=== PATIENT | male | born 1995 | race African-American/Black ===

== ENCOUNTER 2017-06-12 18:19 | Emergency (ER) | payer BC ==
[2017-06-12] MEDS ORDERED: IBUPROFEN 800 MG TABLET PO ONE (19:28)
--- NOTE | 2017-06-12 20:15 | ER Document Report ---
ED Extremity Problem, Lower - General Chief Complaint: Ankle Injury Stated Complaint: LEFT ANKLE PAIN, SWELLING Time Seen by Provider: 06/12/17 19:22 Mode of Arrival: Ambulatory Information source: Patient Notes: 21-year-old male presents to ED for complaint of left ankle pain. States he was at a club last night and was up dancing and someone fell on him causing him to fall landing on his ankle. He states he was intoxicated at the time and the pain was not bad. He woke up this morning with the pain much worse. He used ice for the pain but has not taken any medication. TRAVEL OUTSIDE OF THE [place] IN LAST 30 DAYS: No - HPI Patient complains to provider of: Injury, Pain, Swelling Location: Ankle Occurred: Yesterday - Left Where: Public place Onset/Duration: Gradual Quality of pain: Achy, Throbbing Severity: Severe Pain Level: 5 Context: Fell, Wearing shoes Recent injury: Yes Associated symptoms: Painful ambulation Exacerbated by: Hanging down, Movement, Walking Relieved by: Elevation, Ice - Related Data Allergies/Adverse Reactions: No Known Allergies Allergy (Verified 06/12/17 18:22) Past Medical History - General Information source: Patient - Social History Smoking Status: Never Smoker Cigarette use (# per day): No Chew tobacco use (# tins/day): No Smoking Education Provided: No Frequency of alcohol use: Occasional Drug Abuse: None Occupation: [employer] Lives with: Alone Family History: Arthritis, Hypertension. 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 Renal/ Medical History: Reports: None Malignancy Medical History: Reports None GI Medical History: Reports: None Musculoskeltal Medical History: Reports Other - Myasthenia gravis Skin Medical History: Reports None Psychiatric Medical History: Reports: None Traumatic Medical History: Reports: None Infectious Medical History: Reports: None Past Surgical History: Reports: Hx Inguinal Hernia, Other - Thymus gland removed - Immunizations Immunizations up to date: Yes Hx Diphtheria, Pertussis, Tetanus Vaccination: Yes Review of Systems - Review of Systems Constitutional: No symptoms reported EENT: No symptoms reported Cardiovascular: No symptoms reported Respiratory: No symptoms reported Gastrointestinal: No symptoms reported Genitourinary: No symptoms reported Male Genitourinary: No symptoms reported Musculoskeletal: Ankle swelling Skin: Other - Ecchymosis to left ankle Hematologic/Lymphatic: No symptoms reported Neurological/Psychological: No symptoms reported -: Yes All other systems reviewed and negative Physical Exam - Vital signs Vitals: Temp Pulse Resp BP Pulse Ox 99.0 F 98 18 109/71 100 06/12/17 18:36 06/12/17 18:36 06/12/17 18:36 06/12/17 18:36 06/12/17 18:36 Interpretation: Normal - General General appearance: Appears well, Alert - HEENT Head: Normocephalic, Atraumatic Eyes: Normal Pupils: PERRL - Respiratory Respiratory status: No respiratory distress Chest status: Nontender Breath sounds: Normal Chest palpation: Normal - Cardiovascular Rhythm: Regular Heart sounds: Normal auscultation Murmur: No - Abdominal Inspection: Normal Distension: No distension Bowel sounds: Normal Tenderness: Nontender Organomegaly: No organomegaly - Back Back: Normal, Nontender - Extremities General upper extremity: Normal inspection, Nontender, Normal color, Normal ROM , Normal temperature General lower extremity: Normal color, Normal temperature. No: Boone's sign Ankle: Tender, Ecchymosis, Edema, Limited ROM. No: Abrasion, Deformity, Instability, Laceration, Positive Duong's test, Unable to bear weight - Neurological Neuro grossly intact: Yes Cognition: Normal Orientation: AAOx4 Adriana Coma Scale Eye Opening: Spontaneous Adriana Coma Scale Verbal: Oriented Adriana Coma Scale Motor: Obeys Commands Hull Coma Scale Total: 15 Speech: Normal Motor strength normal: LUE, RUE, LLE, RLE Sensory: Normal - Psychological Associated symptoms: Normal affect, Normal mood - Skin Skin Temperature: Warm Skin Moisture: Dry Skin Color: Normal Course - Re-evaluation Re-evalutation: 06/13/17 01:58 X-rays discussed with patient and written report given to patient. Patient was treated with a posterior splint and Bozman prescription for his avulsion fracture to the left talus. Patient instructed to keep foot elevated and iced and to follow-up with orthopedics in the morning by telephone to schedule follow -up appointment. - Vital Signs Vital signs: Temp Pulse Resp BP Pulse Ox 99.0 F 98 18 109/71 100 06/12/17 18:36 06/12/17 18:36 06/12/17 18:36 06/12/17 18:36 06/12/17 18:36 - Diagnostic Test Radiology reviewed: Image reviewed, Reports reviewed Procedures - Immobilization Left Ankle Time completed: 21:10 Pre-Proc Neuro Vasc Exam: Normal Immobilizer type: Crutches, Posterior ankle Performed by: PCT Post-Proc Neuro Vasc Exam: Normal Alignment checked and good: Yes Discharge - Discharge Clinical Impression: avulsion fracture talus dorsal Condition: Stable Disposition: HOME, SELF-CARE Instructions: Family Physicians / Practices Additional Instructions: Avulsion Fracture of the Ankle There is a small chip fracture in your ankle. This fracture was caused by stretching the joint ligaments, which pulled off a small piece of bone. This injury is treated much the same as a severe sprain. At first, you should elevate, rest, and apply ice packs to the leg. Often , only an ankle brace or tape is necessary while the chip fracture heals. Sometimes a chip fracture of this type requires a cast or walking boot. The treatment plan may change, depending on how your ankle progresses. Chip fractures usually do not fuse back onto the bone, but rather scar down to the bone surface. You will most likely see this bone fragment on future x-rays. It's important that you follow the treatment program as outlined for now, then follow up for re-evaluation as scheduled. Call the doctor or return at once if pain or swelling becomes severe, or if you develop other unusual symptoms. SPLINT PRECAUTIONS: A splint has been placed. This will protect the area while healing begins. Your problem does NOT normally require a cast. It MUST, however, be held still! Keep the splint on ALL THE TIME until instructed to remove it by the doctor. As you begin to use the area, be careful. You shouldn't do anything which causes discomfort -- you may disturb the injury even with the splint in place. After the initial period of rest and elevation, if splint does not prevent pain when you move, come back. You may require placement of a different splint , or a cast. If there is unexpected severe pain, or numbness, discoloration, or swelling beyond the splint, you should return at once. If you feel that the splint has broken or become loose, come back. SPRAINED ANKLE: Your sprained ankle results from stretching or tearing of the ligaments which support the ankle. This usually results from twisting the foot inward and under. The ligaments will require time and protection in order to heal properly. Many ankle sprains are quite disabling, and should be taken seriously. The usual treatment for an ankle sprain is cold packs; protection with tape , splints, or wraps; elevation; and staying off the ankle for at least a day. As the ankle improves, you can walk IF it's not painful to bear weight. Sports are best postponed until healing is complete. More serious sprains usually require strengthening exercises after early healing. Your physician has assessed the seriousness of the ligament injury to your ankle. However, the treatment may change, depending on how your ankle progresses. If further exams were recommended, it is important that you follow through. Call the doctor if your foot becomes numb, painful, or severely swollen. ANKLE STIRRUP SPLINT: You are to use an ankle brace called a stirrup splint. This type of brace allows you to place greater stresses on the ankle without risk of re-injury, and is often used for more severe ankle injuries such as avulsion fractures and ligament ruptures. The splint can be worn over a sock or tape. For proper support, wear the splint with a shoe over it. It's important that the splint fit properly. Adjust the heel tension, if needed. If your splint has air bladders, peel back the bottom of each air bladder, then move the Velcro attachment of the heel strap up or down. Air bladder pressure can be adjusted by pulling up the valve at the top, threading the air tube down into the main bladder, then blowing air into the bladder or squeezing it out. The two sides of the stirrup can be moved forward or back on your ankle by changing the attachment of the main straps. If you are unable to use the ankle comfortably in the splint, return for re -evaluation. SOFT ANKLE SPLINT: You are to wear a cloth ankle splint. This type of splint uses the strength of the fabric to keep the ankle from twisting. The splint can be worn over a sock, if it's more comfortable. If the splint has an adjustable strap, the strap should come up over the OUTER side of the ankle. This strap should be pulled tight enough so you can't turn your ankle in towards you -- it should hold your foot so the sole can't be turned towards at the other foot. You should start out slow. Like a new shoe, the splint may take some "breaking in." You will get blisters if you are too active at first. No ankle brace provides absolute protection. You must avoid activities which put your ankle at risk. Work on strengthening your ankle -- strength is your best protection against re-injury. Call the doctor if you can't do your normal activities in the ankle brace. SPRAINED KNEE: Your sprained knee results from a stretching or tearing of the ligaments which support the joint. This often results from a bending stress -- such as a twisting fall while skiing or a "clip" while playing football. The ligaments will require time and protection to heal adequately. A knee sprain can be quite serious, and should be taken seriously. The usual treatment is splinting of the knee, ice packs, and elevation. You shouldn't walk on the leg if weightbearing is painful. Unless the sprain is obviously a minor one, follow-up exam is very important. The degree of ligament damage often cannot be fully assessed at first due to muscle spasm and pain. Your treatment plan may change based on the physician's findings during your follow-up examination. Call the doctor at once if there is severe swelling, increasing pain, numbness, or other alarming symptoms. SUSPECTED INTERNAL KNEE INJURY: The examiner of your injured knee suspects an internal injury to the cartilage or internal ligaments. This must be further investigated by an orthopedics teacher. The knee should be protected, ice packed, and elevated while awaiting your follow-up exam by the orthopedist. If there is severe swelling, severe pain, or any new symptoms while awaiting your exam, you should call the orthopedist. (If he/she is unavailable, call us or return for re-examination.) KNEE IMMOBILIZING SPLINT: The knee immobilizing splint will protect the injury while healing begins. This type of splint does not allow the knee to bend at all. No running or sports will be possible. If the splint allows painfree walking, it's giving adequate protection. If there is still significant pain, crutches may be needed as well. Don't do anything that hurts. Adjusted the splint, if necessary. The stiffeners on the sides are attached with Velcro, so they can be easily moved to adjust for thigh and calf size. If you need help with these adjustments, come back. You will lose muscle strength in the thigh while using this splint. The doctor will advise you if it's safe to do isometric knee exercises while you use it. USE OF CRUTCHES: The doctor has recommended that you not bear weight at this time. You will need to use crutches. Adjust the crutches so the tops come to about two inches under the armpit while you are standing upright. Use your hands -- not your armpits -- to support your weight. To get into a chair, support yourself with one crutch on the injured side. Hold the chair with the other hand, then lower yourself while putting all your weight on the good leg. Going up stairs is `good leg up, step up, then bring up crutches and bad leg.' Down stairs is `bad leg and crutches down, then bring good leg down.' If you develop numbness or swelling in an arm or hand, you are using the crutches incorrectly. Return if you are having any problems with the crutches. ICE & ELEVATION: Apply ice packs frequently against the painful area. Many different schedules are recommended, such as "20 minutes on, 20 minutes off" or "one hour ice, two hours rest." If you need to work, you may need to go longer between ice treatments. You should plan to have the area ice packed AT LEAST one- fourth of the time. The ice should be applied over the wrap, tape, or splint, or over a layer of cloth -- not directly against the skin. Some ice bags have a built-in cloth and can be put directly on the skin. Your injured part should be elevated as much as possible over the next 48 hours. Try to keep the injury above the level of the heart. Avoid use of the injured area. Elevation and rest will decrease the swelling. USE OF [id number] IBUPROFEN: Ibuprofen (Advil, Nuprin, Medipren, Motrin IB) is a medication for fever and pain control. In addition, it has anti- inflammatory effects which may be beneficial, especially in the treatment of injuries. It's best to take ibuprofen with food. Persons with ulcer disease or allergy to aspirin should notify their physician of this before taking ibuprofen. Ibuprofen can be given every four to six hours, for a total of four doses daily. Age Pain or fever dose Antiinflammatory dose 6-8 yr 200 mg (1 tab) 200 mg (1 tab) 9-11 yr 200 mg (1 tab) 200-400 mg (1-2 tab) 11-14 yr 200-400 mg (1-2 tab) 400 mg (2 tab) 15-adult 400 mg (2 tab) 600 mg (3 tab) ORAL NARCOTIC MEDICATION: You have been given a prescription for pain control. This medication is a narcotic. It's best taken with food, as nausea can result if taken on an empty stomach. Don't operate machinery or drive within six hours of taking this medication. Do not combine this medicine with alcohol, or with any medication which can cause sedation (such as cold tablets or sleeping pills) unless you get permission from the physician. Narcotics tend to cause constipation. If possible, drink plenty of fluids and eat a diet high in fiber and fruits. Please be aware that prescription narcotics also have the potential for abuse. People become addicted to these medications because of the general sense of wellbeing that they induce. This feeling along with a significant reduction in tension, anxiety, and aggression provides a stimulating seductive quality to these drugs. Once your pain is under control, we encourage you to discard your unused narcotics. FOLLOW-UP CARE: If you have been referred to a physician for follow-up care, call the physician s office for an appointment as you were instructed or within the next two days. If you experience worsening or a significant change in your symptoms, notify the physician immediately or return to the Emergency Department at any time for re-evaluation. Prescriptions: Hydrocodone/Acetaminophen [Bozman 5-325 mg Tablet] 1 tab PO Q6HP PRN #7 tablet PRN Reason: Forms: Return to Work Referrals: TERRI KRISHNAN [Primary Care Provider] - Follow up as needed ANDREW DUMONT MD [ACTIVE STAFF] - Follow up as needed
--- NOTE | 2017-06-12 20:28 | RADIOLOGY REPORT (SQ) ---
EXAM DESCRIPTION: ANKLE LEFT COMPLETE COMPLETED DATE/TIME: 06/12/2017 7:43 pm REASON FOR STUDY: pain injury swelling COMPARISON: None. NUMBER OF VIEWS: Three views left ankle. LIMITATIONS: None. FINDINGS: Small ossific fragment just dorsal to the head of the talus seen on lateral view. Suspici ous for a small avulsion fragment. Regional soft tissue swelling. Mortise maintained. No other fra cture identified. No joint effusion. OTHER: No other significant finding. IMPRESSION: Tiny avulsion fragment along the dorsal talus suggested. TECHNICAL DOCUMENTATION: JOB ID: [id number] Reading location - IP/workstation name: [email or web address]
[2017-06-12 21:32] VITALS: BP 140/88
== END 2017-06-12 21:28 | disposition home or self-care (01) ==
LOC: ER 18:19
PROC: 2W3RX1Z Immobilization of Left Lower Leg using Splint (ICD-10-PCS; principal; 2017-06-12)
DX: S92.102A Unspecified fracture of left talus, initial encounter for closed fracture (principal); W03.XXXA Other fall on same level due to collision with another person, initial encounter; Y93.41 Activity, dancing; Y92.89 Other specified places as the place of occurrence of the external cause
CPT/HCPCS: 99283

== ENCOUNTER 2018-01-06 10:27 | Observation (INO) | payer MEDICAID, OTHER ==
--- NOTE | 2018-01-06 10:50 | ER Document Report ---
ED Medical Screen (RME) - General Chief Complaint: Abdominal Pain Stated Complaint: ABDOMINAL PAIN Time Seen by Provider: 01/06/18 10:45 Notes: 22-year-old male patient generalized abdominal pain. States he started hurting about 6 PM last night, got much worse about 1 AM. Pain is predominantly mid to lower abdomen. There is mild nausea without vomiting. He did have 2 episodes of diarrhea with the last one occurring about 4 AM. He reports feeling gassy and is burping and flatulence eating a lot. He states drinking water helps briefly, getting up to walk around seems to help some. I have greeted and performed a rapid initial assessment of this patient. A comprehensive ED assessment and evaluation of the patient, analysis of test results and completion of the medical decision making process will be conducted by additional ED providers. TRAVEL OUTSIDE OF THE [place] IN LAST 30 DAYS: No - Related Data Allergies/Adverse Reactions: No Known Allergies Allergy (Verified 01/06/18 10:32) Past Medical History - Social History Chew tobacco use (# tins/day): No Frequency of alcohol use: Occasional Drug Abuse: None Renal/ Medical History: Denies: Hx Peritoneal Dialysis Past Surgical History: Reports: Hx Inguinal Hernia, Other - Thymus gland removed - Immunizations Immunizations up to date: Yes Hx Diphtheria, Pertussis, Tetanus Vaccination: Yes Physical Exam - Vital signs Vitals: Temp Pulse Resp BP Pulse Ox 98.3 F 67 16 148/97 H 100 01/06/18 10:33 01/06/18 10:33 01/06/18 10:33 01/06/18 10:33 01/06/18 10:33 Course - Vital Signs Vital signs: Temp Pulse Resp BP Pulse Ox 98.3 F 67 16 148/97 H 100 01/06/18 10:33 01/06/18 10:33 01/06/18 10:33 01/06/18 10:33 01/06/18 10:33 Doctor's Discharge - Discharge Referrals: LOCAL,NO [Primary Care Provider] - Follow up as needed
[2018-01-06] MEDS ORDERED: FAMOTIDINE INJ/PF 20 MG/2 ML SDV IV ONE (11:03)
[2018-01-06] MEDS ORDERED: ONDANSETRON HCL INJ/PF 4 MG/2 ML SDV IV ONE (11:03)
[2018-01-06] MEDS ORDERED: DICYCLOMINE HCL 20 MG TABLET PO ONE (11:04)
[2018-01-06] MEDS ORDERED: NORMAL SALINE 1000 ML 1,000 ML IV ONE (11:04)
--- NOTE | 2018-01-06 11:08 | ER Document Report ---
ED General - General Chief Complaint: Abdominal Pain Stated Complaint: ABDOMINAL PAIN Time Seen by Provider: 01/06/18 10:45 TRAVEL OUTSIDE OF THE [place] IN LAST 30 DAYS: No - HPI Notes: Patient is a 22-year-old male that presents to the emergency department for chief complaint of abdominal pain nausea and diarrhea. Patient reports sharp lower abdominal pain that began yesterday evening and has continued to get worse. It is bilateral lower quadrants. He states the pain is worse with laying flat and moving. He denies any relieving factors to his pain. He states he has nausea with no vomiting. He endorses to episodes of diarrhea since onset of the pain. The diarrhea did not change his pain symptoms. He has not tried any [id number] medications. He denies history of similar pain in the past. Past Medical History: Negative Past Surgical History: Umbilical hernia, thymectomy Social History: Denies tobacco and drug use. Occasional alcohol. Family History: Reviewed and noncontributory for presenting illness Allergies: Reviewed, see documented allergy list. REVIEW OF SYSTEMS: CONSTITUTIONAL : No fever No chills No diaphoresis No recent illness EENT: No vision changes No congestion No sore throat CARDIOVASCULAR: No chest pain No palpitations RESPIRATORY: No shortness of breath No cough No difficulty breathing GASTROINTESTINAL: abdominal pain nausea No vomiting diarrhea GENITOURINARY: No dysuria No hematuria No difficulty urinating MUSCULOSKELETAL: No back pain No leg pain No arm pain SKIN: No rashes No lesions LYMPHATIC: No swollen, enlarged glands. NEUROLOGICAL: No lightheadedness No headache No weakness No paresthesias PSYCHIATRIC: No anxiety No depression PHYSICAL EXAMINATION: Vital signs reviewed, nursing noted reviewed. GENERAL: Well-appearing, well-nourished and in no acute distress. HEAD: Atraumatic, normocephalic. EYES: Eyes appear normal, extraocular movements intact, sclera anicteric, conjunctiva are normal. ENT: nares patent, oropharynx clear without exudates. Moist mucous membranes. NECK: Normal range of motion, supple without lymphadenopathy LUNGS: Breath sounds clear to auscultation bilaterally and equal. No wheezes rales or rhonchi. HEART: Regular rate and rhythm without murmurs ABDOMEN: Soft, mild bilateral right and left lower quadrant tenderness, normoactive bowel sounds. No rebound, guarding, or rigidity. No masses appreciated. Negative psoas sign. No peritoneal pain with heel strike EXTREMITIES: Nontender, good range of motion, no pitting or edema. NEUROLOGICAL: No focal neurological deficits. Moves all extremities spontaneously Motor and sensory grossly intact on exam. PSYCH: Normal mood, normal affect. SKIN: Warm, Dry, normal turgor, no rashes or lesions noted on exposed skin - Related Data Allergies/Adverse Reactions: No Known Allergies Allergy (Verified 01/06/18 10:32) Past Medical History - Social History Smoking Status: Unknown if Ever Smoked Chew tobacco use (# tins/day): No Frequency of alcohol use: Occasional Drug Abuse: None Family History: Arthritis, Hypertension. denies: CAD, COPD, CVA, DM, Hyperlipidemia, Malignancy, Thyroid Disfunction Patient has suicidal ideation: No Patient has homicidal ideation: No Renal/ Medical History: Denies: Hx Peritoneal Dialysis Past Surgical History: Reports: Hx Inguinal Hernia, Other - Thymus gland removed - Immunizations Immunizations up to date: Yes Hx Diphtheria, Pertussis, Tetanus Vaccination: Yes Review of Systems - Review of Systems Notes: Dictated Physical Exam - Vital signs Vitals: Temp Pulse Resp BP Pulse Ox 98.3 F 67 16 148/97 H 100 01/06/18 10:33 01/06/18 10:33 01/06/18 10:33 01/06/18 10:33 01/06/18 10:33 - Notes Notes: Dictated Course - Re-evaluation Re-evalutation: 01/06/18 11:08 Vitals reviewed. Nursing notes reviewed. Patient given IV hydration, antiemetics and Bentyl for symptomatic treatment. 01/06/18 12:13 On reevaluation patient states he has minimal improvement of his pain. He was given IV morphine. Acute abdominal series showed no obstruction however on CT scan patient has a partial small bowel obstruction. He is still nauseated and NG tube was placed. Lab work is unremarkable. Patient's care was discussed with Dr. Aguirre who accepted admission. Patient in agreement with the plan and stable at time of admission. Laboratory 01/06/18 01/06/18 01/06/18 11:02 11:02 11:02 WBC 6.4 RBC 5.65 H Hgb 17.0 Hct 49.3 MCV 87 MCH 30.1 MCHC 34.5 RDW 13.9 Plt Count 204 Seg Neutrophils % 66.1 Lymphocytes % 27.3 Monocytes % 5.5 Eosinophils % 0.4 Basophils % 0.7 Absolute Neutrophils 4.2 Absolute Lymphocytes 1.7 Absolute Monocytes 0.4 Absolute Eosinophils 0.0 Absolute Basophils 0.0 Sodium 139.3 Potassium 4.5 Chloride 102 Carbon Dioxide 27 Anion Gap 10 BUN 10 Creatinine 0.83 Est GFR ( Amer) > 60 Est GFR (Non-Af Amer) > 60 Glucose 98 Calcium 9.7 Total Bilirubin 1.4 H Direct Bilirubin 0.4 Neonat Total Bilirubin Not Reportable Neonat Direct Bilirubin Not Reportable Neonat Indirect Bili Not Reportable AST 26 ALT 38 Alkaline Phosphatase 39 Total Protein 8.0 Albumin 4.7 Lipase 73.4 Urine Color YELLOW Urine Appearance CLOUDY Urine pH 9.0 Ur Specific [place] 1.023 Urine Protein 30 H Urine Glucose (UA) NEGATIVE Urine Ketones NEGATIVE Urine Blood NEGATIVE Urine Nitrite NEGATIVE Urine Bilirubin NEGATIVE Urine Urobilinogen NEGATIVE Ur Leukocyte Esterase NEGATIVE Urine WBC (Auto) 3 Urine RBC (Auto) 3 Amorphous Sediment Auto 1+ Urine Mucus (Auto) OCC Urine Ascorbic Acid NEGATIVE Acute Abdomen Series 01/06/18 00:00 IMPRESSION: NONSPECIFIC BOWEL GAS PATTERN WITHOUT EVIDENCE FOR OBSTRUCTION. Abdomen/Pelvis CT 01/06/18 11:05 IMPRESSION: Ileus versus partial small bowel obstruction/ internal hernia. No high-grade obstruction. - Vital Signs Vital signs: Temp Pulse Resp BP Pulse Ox 98.3 F 67 16 148/97 H 100 01/06/18 10:33 01/06/18 10:33 01/06/18 10:33 01/06/18 10:33 01/06/18 10:33 - Laboratory Result Diagrams: 01/06/18 11:02 01/06/18 11:02 Laboratory results interpreted by me: 01/06/18 01/06/18 01/06/18 11:02 11:02 11:02 RBC 5.65 H Total Bilirubin 1.4 H Urine Protein 30 H Discharge - Discharge Clinical Impression: Partial small bowel obstruction Abdominal pain Qualifiers: Abdominal location: lower abdomen, unspecified Qualified Code(s): R10.30 - Lower abdominal pain, unspecified Condition: Stable Disposition: ADMITTED INPATIENT Admitting Provider: Surgicalist Unit Admitted: Medical Floor Referrals: LOCALMD,NO [Primary Care Provider] - Follow up as needed
[2018-01-06 11:17] LABS: ABSOLUTE LYMPHOCYTES (AUTO) 1.7 10^3/uL (0.5-4.7); ABSOLUTE MONOCYTES (AUTO) 0.4 10^3/uL (0.1-1.4); ABSOLUTE NEUT (AUTO) 4.2 10^3/uL (1.7-8.2); BASOPHILS % (AUTO) 0.7 % (0-2); EOSINOPHILS % (AUTO) 0.4 % (0-6); HEMATOCRIT 49.3 % (37.9-51.0); LYMPHOCYTES % (AUTO) 27.3 % (13-45); MEAN CORPUSCULAR HEMOGLOBIN 30.1 pg (27.0-33.4); MEAN CORPUSCULAR HGB CONC 34.5 g/dL (32.0-36.0); MEAN CORPUSCULAR VOLUME 87 fl (80-97); MONOCYTES % (AUTO) 5.5 % (3-13); PLATELET COUNT 204 10^3/uL (150-450); RED BLOOD COUNT 5.65 10^6/uL (4.35-5.55); RED CELL DISTRIBUTION WIDTH 13.9 % (11.5-14.0); SEGMENTED NEUTROPHILS % (AUTO) 66.1 % (42-78); TOTAL CELLS COUNTED % (AUTO) 100 %; WHITE BLOOD COUNT 6.4 10^3/uL (4.0-10.5)
--- NOTE | 2018-01-06 11:24 | RADIOLOGY REPORT (SQ) ---
EXAM DESCRIPTION: ACUTE ABDOMEN SERIES COMPLETED DATE/TIME: 01/06/2018 11:16 am REASON FOR STUDY: GENERALIZED ABDOMINAL SERIES COMPARISON: None. NUMBER OF VIEWS: Three views. TECHNIQUE: PA chest, supine abdomen and upright/decubitus abdomen radiographic images acquired. LIMITATIONS: None. FINDINGS: CHEST: Lungs clear of infiltrates. FREE AIR: None. No abnormal gas collections. BOWEL GAS PATTERN: Few scattered small bowel loops with air fluid levels. No distended large or small bowel loops. CALCIFICATIONS: No suspicious calcifications. HARDWARE: None in the abdomen. SOFT TISSUES: No gross mass or suggestion of organomegaly. BONES: No acute fracture. No worrisome bone lesions. OTHER: No other significant finding. IMPRESSION: NONSPECIFIC BOWEL GAS PATTERN WITHOUT EVIDENCE FOR OBSTRUCTION. TECHNICAL DOCUMENTATION: JOB ID: [id number] [employer] All Rights Reserved Reading location - IP/workstation name: [email or web address]
[2018-01-06 11:27] LABS: AMORPHOUS SEDIMENT,URINE 1+ /HPF; APPEARANCE,URINE CLOUDY; BILIRUBIN,URINE NEGATIVE (NEGATIVE); COLOR,URINE YELLOW; GLUCOSE, URINE NEGATIVE (NEGATIVE); KETONES,URINE NEGATIVE (NEGATIVE); LEUKOCYTE ESTERASE,URINE NEGATIVE (NEGATIVE); NITRITE,URINE NEGATIVE (NEGATIVE); PROTEIN,URINE 30 mg/dL (NEGATIVE); URINE SPECIFIC GRAVITY 1.023; UROBILINOGEN,URINE NEGATIVE mg/dL (<2.0)
[2018-01-06 11:28] LABS: ALANINE AMINOTRANSFERASE 38 U/L (21-72); ALBUMIN 4.7 g/dL (3.5-5.0); ALKALINE PHOSPHATASE 39 U/L (38-126); ANION GAP 10 (5-19); ASPARTATE AMINO TRANSFERASE 26 U/L (17-59); BILIRUBIN,DIRECT 0.4 mg/dL (0.0-0.4); BILIRUBIN,TOTAL 1.4 mg/dL (0.2-1.3); BLOOD UREA NITROGEN 10 mg/dL (7-20); CALCIUM 9.7 mg/dL (8.4-10.2); CARBON DIOXIDE 27 mmol/L (22-30); CHLORIDE 102 mmol/L (98-107); GLUCOSE 98 mg/dL (75-110); LIPASE 73.4 U/L (23-300); POTASSIUM 4.5 mmol/L (3.6-5.0); SODIUM 139.3 mmol/L (137-145)
--- NOTE | 2018-01-06 11:59 | RADIOLOGY REPORT (SQ) ---
EXAM DESCRIPTION: CT ABD/PELVIS WITH IV ONLY COMPLETED DATE/TIME: 01/06/2018 11:37 am REASON FOR STUDY: abdominal pain COMPARISON: None. TECHNIQUE: CT scan of the abdomen and pelvis performed using helical scanning technique with dynamic intravenous contrast injection. No oral contrast. Images reviewed with lung, soft tissue, and bone windows. Reconstructed coronal and sagittal MPR images reviewed. Delayed images for evaluation of the urinary system also acquired. All images stored on PACS. All CT scanners at this facility use dose modulation, iterative reconstruction, and/or weight based d osing when appropriate to reduce radiation dose to as low as reasonably achievable (ALARA). [facility]: Dose Right [facility]: CareDose [facility]: Dose Right [facility]: Teradose 4D [facility]: [employer]Energy CONTRAST TYPE AND DOSE: contrast/concentration: Isovue 350.00 mg/ml; Total Contrast Delivered: 100.0 ml; Total Saline Delivered: 72.0 ml RENAL FUNCTION: None required. The patient is less than 50 years old. RADIATION DOSE: CT Rad equipment meets quality standard of care and radiation dose reduction techniq ues were employed. CTDIvol: 11.6 - 16.0 mGy. DLP: 1308 mGy-cm.. LIMITATIONS: None. FINDINGS: LOWER CHEST: No significant findings. No nodules or infiltrates. LIVER: Normal size. No masses. No dilated ducts. SPLEEN: Normal size. No focal lesions. PANCREAS: No masses. No significant calcifications. No adjacent inflammation or peripancreatic fluid collections. Pancreatic duct not dilated. GALLBLADDER: No identified stones by CT criteria. No inflammatory changes to suggest cholecystitis. ADRENAL GLANDS: No significant masses or asymmetry. RIGHT KIDNEY AND URETER: No solid masses. No significant calcifications. No hydronephrosis or hyd roureter. LEFT KIDNEY AND URETER: No solid masses. No significant calcifications. No hydronephrosis or hydr oureter. AORTA AND VESSELS: No aneurysm. No dissection. Renal arteries, SMA, celiac without stenosis. RETROPERITONEUM: No retroperitoneal adenopathy, hemorrhage or masses. BOWEL AND PERITONEAL CAVITY: Dilated loops of small bowel in the pelvis and left lower quadrant. Pos sible transition at the level of the umbilicus. Gas and fecal material in nondilated colon. No asci ugrpreet or free air. APPENDIX: Normal. PELVIS: No mass. No free fluid. Normal bladder. ABDOMINAL WALL: No masses. No hernias. BONES: No significant or acute findings. OTHER: No other significant finding. IMPRESSION: Ileus versus partial small bowel obstruction/ internal hernia. No high-grade obstructio n. TECHNICAL DOCUMENTATION: JOB ID: [id number] Quality ID # [id number]: Final reports with documentation of one or more dose reduction techniques (e.g., Au tomated exposure control, adjustment of the mA and/or kV according to patient size, use of iterative reconstruction technique) 2010 [employer] / [email or web address]- All Rights Reserved Reading location - IP/workstation name: [facility]
[2018-01-06] MEDS ORDERED: MORPHINE SULFATE 10 MG/ML INJ IV ONE (12:12)
--- NOTE | 2018-01-06 15:19 | PDOC H&P ---
History of Present Illness Admission Date/PCP: 01/06/18 12:41 Patient complains of: abdominal pains History of Present Illness: YVONNE CONNER JR is a 22 year old male who suddenly c/o karla-umbilical pains last night after eating hamburger. This was associated with nausea and diarrhea. Pains are intermittent but does not completely go away. History of umbilical hernia repair at age 10 months. He has not had any abdominal c/o until last night. Past Surgical History Past Surgical History: Reports: Other - Thymus gland removed Umbilical hernia repair as 10 months age Social History Smoking Status: Unknown if Ever Smoked Frequency of Alcohol Use: Occasional Family History Family History: Arthritis, Hypertension. denies: CAD, COPD, CVA, DM, Hyperlipidemia, Malignancy, Thyroid Disfunction Parental Family History Reviewed: Yes - hypertension Children Family History Reviewed: No Sibling(s) Family History Reviewed.: No Medication/Allergy Home Medications: No Home Medications 01/06/18 Allergies/Adverse Reactions: No Known Allergies Allergy (Verified 01/06/18 10:32) Review of Systems Constitutional: PRESENT: as per HPI Eyes: PRESENT: other - no visual/hearing changes Cardiovascular: PRESENT: other - no chest pains/cough Gastrointestinal: PRESENT: abdominal pain, diarrhea, nausea Genitourinary: PRESENT: other - no dysuria Neurological: PRESENT: other - no seizures Physical Exam Vital Signs: Temp Pulse Resp BP Pulse Ox 98.3 F 67 16 148/97 H 100 01/06/18 10:33 01/06/18 10:33 01/06/18 10:33 01/06/18 10:33 01/06/18 10:33 Intake & Output 01/05/18 01/06/18 01/07/18 06:59 06:59 06:59 Intake Total 1000 Output Total 100 Balance 900 General appearance: PRESENT: mild distress Head exam: PRESENT: atraumatic Eye exam: PRESENT: conjunctiva pink Mouth exam: PRESENT: moist Neck exam: PRESENT: full ROM Respiratory exam: PRESENT: clear to auscultation salma Cardiovascular exam: PRESENT: RRR Pulses: PRESENT: normal radial pulses Vascular exam: PRESENT: normal capillary refill GI/Abdominal exam: PRESENT: soft, tenderness - periumbilical area,mild Rectal exam: PRESENT: deferred Extremities exam: PRESENT: full ROM Musculoskeletal exam: PRESENT: ambulatory Neurological exam: PRESENT: alert, oriented to person, oriented to place, oriented to time, oriented to situation Psychiatric exam: PRESENT: appropriate affect Skin exam: PRESENT: normal color, warm Results Impressions: Acute Abdomen Series 01/06/18 00:00 IMPRESSION: NONSPECIFIC BOWEL GAS PATTERN WITHOUT EVIDENCE FOR OBSTRUCTION. Abdomen/Pelvis CT 01/06/18 11:05 IMPRESSION: Ileus versus partial small bowel obstruction/ internal hernia. No high-grade obstruction. Assessment & Plan - Time Time Spent: 30 to 50 Minutes - Inpatient Certification Based on my medical assessment, after consideration of the patient's comorbidities, presenting symptoms, or acuity I expect that the services needed warrant INPATIENT care.: Yes I certify that my determination is in accordance with my understanding of Medicare's requirements for reasonable and necessary INPATIENT services [42 CFR 412.3e].: Yes Medical Necessity: Need For IV Fluids, Need for Pain Control, Need for Surgery, Risk of Complication if Not Cared For in Hospital - Plan Summary Plan Summary: NGT SBFT Hydrate Pain mx
--- NOTE | 2018-01-06 16:19 | RADIOLOGY REPORT (SQ) ---
EXAM DESCRIPTION: KUB/ABDOMEN (SINGLE VIEW) COMPLETED DATE/TIME: 01/06/2018 4:05 pm REASON FOR STUDY: ng tube placement COMPARISON: None. NUMBER OF VIEWS: One view. TECHNIQUE: Supine radiographic image of the abdomen acquired. LIMITATIONS: None. FINDINGS: Nasogastric tube in the stomach. See separate small-bowel follow-through. Contrast in th e left kidney collecting system and urinary bladder. IMPRESSION: Nasogastric tube in the stomach. Reading location - IP/workstation name: [email or web address]
--- NOTE | 2018-01-06 16:21 | RADIOLOGY REPORT (SQ) ---
EXAM DESCRIPTION: SMALL BOWEL SERIES COMPLETED DATE/TIME: 01/06/2018 4:04 pm REASON FOR STUDY: to check possible site of obstruction COMPARISON: None. FLUOROSCOPY TIME: None No fluoro images saved to PACS. LIMITATIONS: None. PROCEDURE: Initial demi chef image of abdomen acquired, followed by administration of oral contrast. Se rial radiographic images acquired. Fluoroscopic images recorded of the terminal ileum and other tiarra cated areas. All images stored on PACS. FINDINGS: EDITOR [employer] KUB: Non-obstructive bowel pattern. No abnormal calcifications. Soft tissue planes normal. STOMACH: No significant reflux. Normal distention without abnormality. DUODENUM: Normal mucosal pattern with adequate distention. No displacement or obstruction. JEJUNUM: Normal mucosal pattern. No dilatation, segmentation, strictures or masses. ILEUM: Normal mucosal pattern. No dilatation, segmentation, strictures or masses. TERMINAL ILEUM AND ILEO-CECAL VALVE: Normal mucosal pattern without "cobblestoning" or stricture. No rmal compression. PROXIMAL COLON: Incompletely imaged. No abnormality. OTHER: Small bowel transit time 1-1/2 hours. IMPRESSION: NORMAL SMALL BOWEL EXAM. COMMENT: None Quality ID 145: Final reports for procedures using fluoroscopy that document radiation exposure tiarra sheryl, or exposure time and number of fluorographic images (if radiation exposure indices are not avail able) TECHNICAL DOCUMENTATION: JOB ID: [id number] [employer]- All Rights Reserved Reading location - IP/workstation name: [email or web address]
[2018-01-06] MEDS ORDERED: NORMAL SALINE 1000 ML 1,000 ML IV PRN ×2 (16:43→17:22)
[2018-01-06] MEDS ORDERED: MORPHINE SULFATE 10 MG/ML INJ IV PRN (16:44)
[2018-01-07 06:45] LABS: ANION GAP 6 (5-19); BLOOD UREA NITROGEN 8 mg/dL (7-20); CALCIUM 8.7 mg/dL (8.4-10.2); CARBON DIOXIDE 28 mmol/L (22-30); CHLORIDE 106 mmol/L (98-107); GLUCOSE 89 mg/dL (75-110); POTASSIUM 4.2 mmol/L (3.6-5.0); SODIUM 139.7 mmol/L (137-145)
[2018-01-07 06:46] LABS: ABSOLUTE EOSINOPHILS # (AUTO) 0.1 10^3/uL (0.0-0.6); ABSOLUTE LYMPHOCYTES (AUTO) 2.6 10^3/uL (0.5-4.7); ABSOLUTE MONOCYTES (AUTO) 0.4 10^3/uL (0.1-1.4); ABSOLUTE NEUT (AUTO) 2.1 10^3/uL (1.7-8.2); BASOPHILS % (AUTO) 0.4 % (0-2); EOSINOPHILS % (AUTO) 1.1 % (0-6); LYMPHOCYTES % (AUTO) 50.1 % (13-45); MEAN CORPUSCULAR HEMOGLOBIN 30.5 pg (27.0-33.4); MEAN CORPUSCULAR HGB CONC 34.2 g/dL (32.0-36.0); MEAN CORPUSCULAR VOLUME 89 fl (80-97); MONOCYTES % (AUTO) 8.4 % (3-13); PLATELET COUNT 169 10^3/uL (150-450); RED BLOOD COUNT 4.83 10^6/uL (4.35-5.55); RED CELL DISTRIBUTION WIDTH 14.1 % (11.5-14.0); TOTAL CELLS COUNTED % (AUTO) 100 %; WHITE BLOOD COUNT 5.2 10^3/uL (4.0-10.5)
[2018-01-07 06:48] LABS: HEMOGLOBIN 14.7 g/dL (13.5-17.0)
--- NOTE | 2018-01-07 07:11 | DISCHARGE SUMMARY E ---
Discharge Summary NAME: YVONNE CONNER : 1995 AGE: 22Y ADMITTED: 01/06/2018 DISCHARGED: 01/07/2018 FINAL DIAGNOSIS: Partial small bowel obstruction. HOSPITAL COURSE: This is a 22-year-old male who had a previous umbilical hernia repair in the past. He complained of umbilical pains on the day of admission. He had a CAT scan of the abdomen, which showed partial small bowel obstruction. He then went further for a small bowel follow through, which showed obstruction appears to have been resolved. The patient had a bowel movement on the night of admission and the pain appears to have subsided. On the morning of discharge on 01/07/2018, patient able to tolerate soft diet and the lower abdominal pain disappeared. He was then discharged improved with the above final diagnosis. The patient advised to follow up with his primary physician. DICTATING PHYSICIAN: DEISY MARINELLI M.D. [id number] PHY#: [id number] ID: [id number] JOB#: [id number] ACCT: [id number] cc:DEISY MARINELLI M.D. >
[2018-01-07 08:25] VITALS: BP 123/67
== END 2018-01-07 09:17 | disposition home or self-care (01) ==
LOC: ER 10:27 → INTOOBSV 12:41 → EH 12:41 → 2N 16:06
PROVIDERS: ADMIT Surgery; ATTEND Surgery
DX: K56.600 Partial intestinal obstruction, unspecified as to cause (principal); Z98.890 Other specified postprocedural states; Z23 Encounter for immunization
CPT/HCPCS: 99285; 96374; 96375; 36415 ×2; 83690; 85025 ×2; 80048; 80053; 81001; 74022; 74018; 74250; 74177; 90686; G0378 ×2; G0008; J3490; J2270; J2405; J7030; S0028; 90471

== ENCOUNTER 2018-03-05 17:02 | Inpatient (IN) | payer MEDICAID ==
[2018-03-05] MEDS ORDERED: THIAMINE HCL 100 MG in NORMAL SALINE 50 ML IV ONE (17:38)
--- NOTE | 2018-03-05 18:00 | ER Document Report ---
ED Medical Screen (RME) - General Chief Complaint: Hip Pain Stated Complaint: HIP PAIN, UNABLE TO SPEAK Time Seen by Provider: 03/05/18 17:36 Notes: Patient is a 22-year-old male with history of myasthenia gravis that presents to the emergency department for chief complaint of left hip pain, and confusion. Mother reports that patient was drinking until the night, the next day he was hung over, but he has been laying in bed, and confused, not answering questions appropriately, this is all new and very concerning for her. ROS: Other than noted above, the 12 point review of systems was reviewed with the patient and were negative, all pertinent findings are included in the HPI. PHYSICAL EXAMINATION: Vital signs reviewed. GENERAL: Well-appearing, well-nourished and in no acute distress. HEAD: Atraumatic, normocephalic. EYES: Pupils equal round extraocular movements intact, conjunctiva are normal. ENT: Nares patent NECK: Normal range of motion CV: Heart regular rate and rhythm LUNGS: No respiratory distress Musculoskeletal: Normal range of motion, left hip tenderness to palpation over the left greater trochanter NEUROLOGICAL: Normal speech, patient is confused, and seems to have a degree of receptive aphasia, not answering questions appropriately, talking about the bathroom when asked what year it is, he can come up with his birthday, or the president. No other focal neurological deficits, muscular motor strength and sensation appear to be grossly intact distally in all extremities. PSYCH: Flat affect MDM: Patient seen and examined for rapid initial assessment. Vital signs reviewed. A comprehensive ED assessment and evaluation of the patient, analysis of test results and completion of the medical decision making process will be conducted by additional ED providers. *Note is created using voice recognition software and may contain spelling, syntax or grammatical errors. TRAVEL OUTSIDE OF THE [place] IN LAST 30 DAYS: No - Related Data Allergies/Adverse Reactions: No Known Allergies Allergy (Verified 01/06/18 10:32) Past Medical History - Social History Chew tobacco use (# tins/day): No Frequency of alcohol use: None Drug Abuse: None Renal/ Medical History: Denies: Hx Peritoneal Dialysis Psychiatric Medical History: Denies: Hx Depression Past Surgical History: Reports: Hx Inguinal Hernia, Other - Thymus gland removed Umbilical hernia repair as 10 months age - Immunizations Immunizations up to date: Yes Hx Diphtheria, Pertussis, Tetanus Vaccination: Yes Physical Exam - Vital signs Vitals: Temp Pulse Resp BP Pulse Ox 100.7 F H 96 16 139/93 H 99 03/05/18 17:20 03/05/18 17:20 03/05/18 17:20 03/05/18 17:20 03/05/18 17:20 Course - Vital Signs Vital signs: Temp Pulse Resp BP Pulse Ox 100.7 F H 96 16 139/93 H 99 03/05/18 17:20 03/05/18 17:20 03/05/18 17:20 03/05/18 17:20 03/05/18 17:20
[2018-03-05 18:14] LABS: ABSOLUTE LYMPHOCYTES (AUTO) 2.2 10^3/uL (0.5-4.7); ABSOLUTE MONOCYTES (AUTO) 0.7 10^3/uL (0.1-1.4); ABSOLUTE NEUT (AUTO) 4.7 10^3/uL (1.7-8.2); BASOPHILS % (AUTO) 0.4 % (0-2); HEMATOCRIT 49.1 % (37.9-51.0); HEMOGLOBIN 17.4 g/dL (13.5-17.0); LYMPHOCYTES % (AUTO) 28.5 % (13-45); MEAN CORPUSCULAR HEMOGLOBIN 30.5 pg (27.0-33.4); MEAN CORPUSCULAR HGB CONC 35.5 g/dL (32.0-36.0); MEAN CORPUSCULAR VOLUME 86 fl (80-97); MONOCYTES % (AUTO) 9.3 % (3-13); PLATELET COUNT 161 10^3/uL (150-450); RED BLOOD COUNT 5.72 10^6/uL (4.35-5.55); RED CELL DISTRIBUTION WIDTH 14.2 % (11.5-14.0); SEGMENTED NEUTROPHILS % (AUTO) 61.8 % (42-78); TOTAL CELLS COUNTED % (AUTO) 100 %; WHITE BLOOD COUNT 7.6 10^3/uL (4.0-10.5)
[2018-03-05 18:22] LABS: APPEARANCE,URINE SLIGHTLY-CLOUDY; BILIRUBIN,URINE NEGATIVE (NEGATIVE); COLOR,URINE AMBER; GLUCOSE, URINE NEGATIVE (NEGATIVE); KETONES,URINE TRACE mg/dL (NEGATIVE); LEUKOCYTE ESTERASE,URINE NEGATIVE (NEGATIVE); NITRITE,URINE NEGATIVE (NEGATIVE); PROTEIN,URINE >=500 mg/dL (NEGATIVE); URINE SPECIFIC GRAVITY 1.026; UROBILINOGEN,URINE NEGATIVE mg/dL (<2.0)
[2018-03-05] MEDS ORDERED: ACETAMINOPHEN 325 MG TABLET PO ONE (18:31)
[2018-03-05] MEDS ORDERED: LIDOCAINE 1% INJ-PF (10 MG/ML) 30 ML SDV INJ ONE (18:31)
[2018-03-05 18:35] LABS: URINE AMPHETAMINES SCREEN NEGATIVE; URINE BARBITURATES SCREEN NEGATIVE; URINE BENZODIAZEPINES SCREEN NEGATIVE; URINE COCAINE SCREEN NEGATIVE; URINE MARIJUANA (THC) SCREEN NEGATIVE; URINE METHADONE SCREEN NEGATIVE; URINE PHENCYCLIDINE SCREEN NEGATIVE
[2018-03-05 18:39] LABS: ALANINE AMINOTRANSFERASE 75 U/L (21-72); ALBUMIN 4.8 g/dL (3.5-5.0); ALKALINE PHOSPHATASE 56 U/L (38-126); ANION GAP 16 (5-19); ASPARTATE AMINO TRANSFERASE 97 U/L (17-59); BILIRUBIN,DIRECT 0.2 mg/dL (0.0-0.4); BILIRUBIN,TOTAL 1.1 mg/dL (0.2-1.3); BLOOD UREA NITROGEN 19 mg/dL (7-20); CALCIUM 9.1 mg/dL (8.4-10.2); CARBON DIOXIDE 26 mmol/L (22-30); CHLORIDE 97 mmol/L (98-107); CREATINE KINASE 1233 U/L (55-170); GLUCOSE 94 mg/dL (75-110); LIPASE 239.7 U/L (23-300); POTASSIUM 3.9 mmol/L (3.6-5.0); SODIUM 139.4 mmol/L (137-145); TOTAL PROTEIN 8.3 g/dL (6.3-8.2)
[2018-03-05 18:42] LABS: ACETAMINOPHEN < 10 ug/mL (10-30); SALICYLATE < 1.0 mg/dL (2.0-20.0)
[2018-03-05 18:46] LABS: ARTERIAL BLOOD H2CO3 1.13 mmol/L (1.05-1.35); ARTERIAL BLOOD HCO3 23.2 mmol/L (20-24); ARTERIAL BLOOD O2 SATURATION 93.1 % (94-98); ARTERIAL BLOOD PCO2 37.5 mmHg (35-45); ARTERIAL BLOOD PH 7.41 (7.35-7.45); ARTERIAL BLOOD PO2 65.2 mmHg (80-100); ARTERIAL BLOOD TOTAL CO2 24.3 mmol/L (23-27)
[2018-03-05 18:47] LABS: ARTERIAL BLOOD FIO2 ROOM AIR
[2018-03-05 18:54] LABS: FREE T4 (FREE THYROXINE) 1.01 ng/dL (0.78-2.19)
[2018-03-05] MEDS ORDERED: RINGERS SOLUTION,LACTATED 2,000 ML IV ONE (18:55)
--- NOTE | 2018-03-05 18:55 | RADIOLOGY REPORT (SQ) ---
EXAM DESCRIPTION: CT HEAD WITHOUT COMPLETED DATE/TIME: 03/05/2018 6:40 pm REASON FOR STUDY: aphasia COMPARISON: 03/15/2011 TECHNIQUE: Axial images acquired through the brain without intravenous contrast. Images reviewed wi th bone, brain and subdural windows. Additional sagittal and coronal reconstructions were generated. Images stored on PACS. All CT scanners at this facility use dose modulation, iterative reconstruction, and/or weight based d osing when appropriate to reduce radiation dose to as low as reasonably achievable (ALARA). [facility]: Dose Right [facility]: CareDose [facility]: Dose Right [facility]: Teradose 4D [facility]: [employer] RADIATION DOSE: CT Rad equipment meets quality standard of care and radiation dose reduction techniq ues were employed. CTDIvol: 53.2 mGy. DLP: 1097 mGy-cm. mGy. LIMITATIONS: None. FINDINGS: VENTRICLES: Normal size and contour. CEREBRUM: No masses. No hemorrhage. No midline shift. No evidence for acute infarction. Normal gra y/white matter differentiation. No areas of low density in the white matter. CEREBELLUM: No masses. No hemorrhage. No alteration of density. No evidence for acute infarction. EXTRAAXIAL SPACES: No fluid collections. No masses. ORBITS AND GLOBE: No intra- or extraconal masses. Normal contour of globe without masses. CALVARIUM: No fracture. PARANASAL SINUSES: No fluid or mucosal thickening. SOFT TISSUES: No mass or hematoma. OTHER: No other significant finding. IMPRESSION: NORMAL BRAIN CT WITHOUT CONTRAST. EVIDENCE OF ACUTE STROKE: NO. COMMENT: Quality ID # 436: Final reports with documentation of one or more dose reduction techniques (e.g., Automated exposure control, adjustment of the mA and/or kV according to patient size, use of iterative reconstruction technique) TECHNICAL DOCUMENTATION: JOB ID: [id number] [employer]- All Rights Reserved Reading location - IP/workstation name: [email or web address]
--- NOTE | 2018-03-05 19:00 | RADIOLOGY REPORT (SQ) ---
EXAM DESCRIPTION: HIP LEFT AP/LATERAL COMPLETED DATE/TIME: 03/05/2018 6:49 pm REASON FOR STUDY: left hip pain COMPARISON: 01/06/2018 NUMBER OF VIEWS: Two views. TECHNIQUE: AP pelvis and additional frog-leg view of the left hip. LIMITATIONS: None. FINDINGS: MINERALIZATION: Normal. LEFT HIP: No fracture or dislocation. No worrisome bone lesions. RIGHT HIP: No fracture or dislocation. No worrisome bone lesions. PUBIS AND ISCHIUM: No fracture. PELVIS: No fracture. SACRUM: No fracture or dislocation. No worrisome bone lesions. LOWER LUMBAR SPINE: No fracture or dislocation. No worrisome bone lesions. No significant disc disea se. SOFT TISSUES: No findings. OTHER: No other significant finding. IMPRESSION: NEGATIVE STUDY OF THE LEFT HIP AND PELVIS. NO RADIOGRAPHIC EVIDENCE OF ACUTE INJURY. TECHNICAL DOCUMENTATION: JOB ID: [id number] [employer]- All Rights Reserved Reading location - IP/workstation name: [email or web address]
--- NOTE | 2018-03-05 19:03 | RADIOLOGY REPORT (SQ) ---
EXAM DESCRIPTION: CHEST 2 VIEWS COMPLETED DATE/TIME: 03/05/2018 6:49 pm REASON FOR STUDY: altered mental status COMPARISON: None. EXAM PARAMETERS: NUMBER OF VIEWS: two views TECHNIQUE: Digital Frontal and Lateral radiographic views of the chest acquired. RADIATION DOSE: NA LIMITATIONS: none FINDINGS: LUNGS AND PLEURA: No opacities, masses or pneumothorax. No pleural effusion. MEDIASTINUM AND HILAR STRUCTURES: No masses or contour abnormalities. HEART AND VASCULAR STRUCTURES: As the radiograph is labeled a, of the cardiac apex points to the dani ent's right. However, upon evaluation of prior imaging, the patient's cardiac apex points the left a nd this image is mislabeled. Heart normal size. No evidence for failure. BONES: No acute findings. HARDWARE: None in the chest. OTHER: No other significant finding. IMPRESSION: NO ACUTE RADIOGRAPHIC FINDING IN THE CHEST. TECHNICAL DOCUMENTATION: JOB ID: [id number] [employer]- All Rights Reserved Reading location - IP/workstation name: [email or web address]
[2018-03-05 19:08] LABS: THYROID STIMULATING HORMONE 1.31 uIU/mL (0.47-4.68)
[2018-03-05] MEDS ORDERED: MIDAZOLAM 2 MG/2 ML INJ ONE (19:13)
--- NOTE | 2018-03-05 19:57 | ER Document Report ---
ED General - General Chief Complaint: Hip Pain Stated Complaint: HIP PAIN, UNABLE TO SPEAK Time Seen by Provider: 03/05/18 17:36 Cannot obtain history due to: Altered mental status Notes: Patient a 22-year-old male with a past medical history of myasthenia gravis currently off all therapies who presents with his mother due to concerns of altered mental status. History is difficult to obtain as the patient is very confused. Mother does report that for the past 48-72 hours the patient has seemed very confused, weak, having difficulty walking. She states that this is not at all like his normal self and that he has never had similar symptoms in the past. Apparently symptoms started after a heavy night of drinking 3 days ago. She states that he has been mostly lying in bed sleeping for the past several days. He has not seen his general physician regarding today's concerns. Nothing seems to improve or worsen his symptoms. History is otherwise limited secondary to the patient's mental status. TRAVEL OUTSIDE OF THE [place] IN LAST 30 DAYS: No - Related Data Allergies/Adverse Reactions: No Known Allergies Allergy (Verified 01/06/18 10:32) Past Medical History - General Information source: Patient, Relative - Social History Smoking Status: Never Smoker Chew tobacco use (# tins/day): No Frequency of alcohol use: Occasional Drug Abuse: None Lives with: Family Family History: Arthritis, Hypertension. denies: CAD, COPD, CVA, DM, Hyperlipidemia, Malignancy, Thyroid Disfunction Patient has suicidal ideation: No Patient has homicidal ideation: No Renal/ Medical History: Denies: Hx Peritoneal Dialysis Psychiatric Medical History: Denies: Hx Depression Past Surgical History: Reports: Hx Inguinal Hernia, Other - Thymus gland removed Umbilical hernia repair as 10 months age - Immunizations Immunizations up to date: Yes Hx Diphtheria, Pertussis, Tetanus Vaccination: Yes Review of Systems - Review of Systems -: Yes ROS unobtainable due to patient's medical condition Physical Exam - Vital signs Vitals: Temp Pulse Resp BP Pulse Ox 100.7 F H 96 16 139/93 H 99 03/05/18 17:20 03/05/18 17:20 03/05/18 17:20 03/05/18 17:20 03/05/18 17:20 Interpretation: Hypertensive, Febrile Notes: PHYSICAL EXAMINATION: GENERAL: Appears unwell, globally confused but in no acute distress HEAD: Atraumatic, normocephalic. EYES: Pupils equal round and reactive to light, extraocular movements intact, sclera anicteric, conjunctiva are normal. ENT: nares patent, oropharynx clear without exudates. Dry mucous membranes. NECK: Normal range of motion, supple without lymphadenopathy LUNGS: Breath sounds clear to auscultation bilaterally and equal. No wheezes rales or rhonchi. HEART: Regular tachycardia without murmurs ABDOMEN: Soft, nontender, normoactive bowel sounds. No guarding, no rebound. No masses appreciated. EXTREMITIES: no pitting or edema. No cyanosis. NEUROLOGICAL: Face symmetric. Tongue protrudes midline. Extraocular motions intact. Pupils are 2 mm and equally reactive. Delayed speech. 5 out of 5 strength in both the distal and proximal upper and lower extremities bilaterally. Sensation is grossly intact throughout. PSYCH: Somewhat lethargic but does respond to questions. Oriented only to person and location. Does not know the year, current president, month, or any recent events. Seems globally confused. SKIN: Warm, Dry, normal turgor, no rashes or lesions noted. Course - Re-evaluation Re-evalutation: 03/05/18 19:55 Patient presents with confusion, difficulty walking that has been ongoing for the past 48-72 hours. He is otherwise nontoxic in appearance, initial vitals show a temperature of 100.7 but are otherwise unremarkable. Laboratories broadly unremarkable with the exception of a mildly elevated CK. CT the head unremarkable. Chest x-ray clear. Patient had originally complained of left hip pain although at the time of my evaluation was denying this complaint. All these images are unremarkable. I did attempt a lumbar puncture on the patient. Despite feeling the appropriate pop sensation in 3 separate locations I could not withdraw any fluid. I will have another provider attempt to see if they are able to obtain fluid. Patient does have a history of myasthenia gravis which could account for his sensation of weakness and difficulty walking but should not account for his fever nor his altered mental status. If we are unable to get a successful lumbar puncture will broadly cover and reassess. Patient is in guarded condition and will be reassessed at regular intervals. 03/05/18 20:32 A second provider was likewise unable to obtain a lumbar puncture successfully despite 2 separate attempts. Will attempt to get radiology to perform under fluoroscopy. Empiric coverage with acyclovir, cefepime and vancomycin has been initiated. Patient is receiving fluids. 03/05/18 21:56 I discussed this case at length with the resident covering for the attending neurologist at [place] . She agrees with management at this point, notes that they were unable to get a lumbar puncture at [place] in 2011 on 3 separate attempts. It appears that the patient is extremity difficult LP but this procedure continues to be necessary. We are awaiting radiology to perform the procedure. I have updated the patient. It appears that he is also still supposed to be on CellCept and I reconfirmed that he is not taking this. Appearance of any focal neurologic deficits although remains globally confused. The neurologist did not feel the patient immediately required transfer for neurology consultation at this time. I have again discussed with Dr. Dozier who would like to wait on results of the lumbar puncture before considering to accept the patient. 03/06/18 00:31 Lumbar puncture was able to be successfully obtained under fluoroscopy. Results appear inconsistent with acute infection. Patient does remain confused although without any focal neurologic deficits. Vitals remain within I have again discussed with Dr. Dozier who has accepted patient for admission at this time. - Vital Signs Vital signs: Temp Pulse Resp BP Pulse Ox 98.9 F 90 18 125/74 97 03/06/18 00:32 03/06/18 00:32 03/06/18 00:32 03/06/18 00:32 03/06/18 00:32 - Laboratory Result Diagrams: 03/05/18 17:54 03/05/18 17:54 Laboratory results interpreted by me: 03/05/18 03/05/18 03/05/18 17:54 17:54 17:54 RBC 5.72 H Hgb 17.4 H RDW 14.2 H PT APTT ABG pO2 ABG O2 Saturation Chloride 97 L AST 97 H ALT 75 H Creatine Kinase 1233 H Total Protein 8.3 H Urine Protein >=500 H Urine Ketones TRACE H Urine Blood SMALL H Salicylates < 1.0 L Acetaminophen < 10 L 03/05/18 03/05/18 18:18 20:55 RBC Hgb RDW PT 15.6 H APTT 41.8 H ABG pO2 65.2 L ABG O2 Saturation 93.1 L Chloride AST ALT Creatine Kinase Total Protein Urine Protein Urine Ketones Urine Blood Salicylates Acetaminophen - Diagnostic Test Radiology reviewed: Image reviewed, Reports reviewed Radiology results interpreted by me: 03/06/18 00:31 CT head: No acute intracranial bleed or mass Chest x-ray: No acute infiltrate or pneumothorax Hip x-ray: No acute fractures or dislocation - EKG Interpretation by Me Additional EKG results interpreted by me: 03/06/18 00:32 Sinus rhythm. Rate 82. No ST elevations or depressions. QTC is 421. Procedures - Lumbar Puncture Lumbar puncture Consent obtained: Yes Lumbar puncture pre-procedure: Sterile PPE donned, Betadine prep applied, Chloraprep applied, Sterile drapes applied Patient position: Sitting Needle size: 22 Lumbar puncture location: L4-5 Anesthetic type: 1% Lidocaine mL's of anesthetic: 5 Number of attempts: 3 Complications: No Notes: 03/06/18 00:36 Unable to obtain Critical Care Note - Critical Care Note Total time excluding time spent on procedures (mins): 40 Comments: Critical care time spent obtaining history from patient or surrogate, discussions with consultants, development of treatment plan with patient or surrogate, evaluation of patient's response to treatment, examination of patient , ordering and performing treatments and interventions, ordering and review of laboratory studies, re-evaluation of patient's condition, ordering and review of radiographic studies and review of old charts Discharge - Discharge Clinical Impression: Fever of unknown origin, Generalized weakness, Myasthenia gravis Altered mental status Qualifiers: Altered mental status type: disorientation Qualified Code(s): R41.0 - Disorientation, unspecified Condition: Fair Disposition: ADMITTED OBSERVATION Admitting Provider: Hospitalist Unit Admitted: Telemetry
[2018-03-05] MEDS ORDERED: LIDOCAINE 1% INJ-PF (10 MG/ML) 30 ML SDV ONE (20:05)
[2018-03-05] MEDS ORDERED: CEFTRIAXONE 2 GM/D5W RTU 2 GM/50 ML RTUPB IV ONE (20:23)
[2018-03-05] MEDS ORDERED: ACYCLOVIR SODIUM INJ/PF 500 MG/10 ML SDV IV ONE (20:25)
[2018-03-05] MEDS ORDERED: VANCOMYCIN HCL INJ 1000 MG VIAL IV ONE (20:26)
--- NOTE | 2018-03-05 21:00 | EKG REPORT ---
SEVERITY:- BORDERLINE ECG - SINUS RHYTHM BORDERLINE T WAVE ABNORMALITIES : Confirmed by: Jean Ramachandran MD 05-Mar-2018 20:59:40
[2018-03-05 21:22] LABS: INTERNATIONAL RATION (INR) 1.18; PROTHROMBIN TIME 15.6 SEC (11.4-15.4)
[2018-03-05 21:23] LABS: PARTIAL THROMBOPLASTIN TIME 41.8 SEC (23.5-35.8)
[2018-03-05] MEDS ORDERED: CEFTRIAXONE INJ 1000 MG VIAL ONE (22:26)
--- NOTE | 2018-03-05 23:01 | RADIOLOGY REPORT (SQ) ---
EXAM DESCRIPTION: FLUORO/NEEDLE PLACEMENT/SPINE; LUMBAR PUNCTURE COMPLETED DATE/TIME: 03/05/2018 10:51 pm; 03/05/2018 8:33 pm REASON FOR STUDY: 2 PROVIDERS UNABLE TO OBTAIN, AMS/FEVER; 2 providers unable to obtain, ams/fever COMPARISON: CT of the head 03/05/2018. FLUOROSCOPY TIME: 21 seconds 3 images saved to PACS. TECHNIQUE: Fluoroscopic guided lumbar puncture with opening and closing pressures. LIMITATIONS: None. PROCEDURE: After written consent and assessment were obtained, the patient was brought into the fluo roscopy room and placed prone on the table. The patient's lower back was prepped in a sterile fashio n and an entry site was selected under live fluoroscopic guidance. The entry site was anesthetized wi th 1% lidocaine. A 20 gauge needle was advanced through the skin and into the thecal sac at the level of L2-L3. An opening pressure of 16 water units was obtained. After approximately 5.5ml of CSF was drained, a closing pressure of 14 water units was obtained. The needle was removed and a sterile band age was placed of the site. Specimens were sent to the lab for testing. A fluoroscopic spot image was saved to PACS confirming level access. FINDINGS: Clear CSF IMPRESSION: Lumbar puncture under fluoroscopy. No immediate complication. COMMENT: Patient medication list reviewed:Yes- Quality ID# [id number]:Eligible professional attests to docu menting in the medical record they obtained, updated, or reviewed the patient's current medications.. Quality ID 145: Final reports for procedures using fluoroscopy that document radiation exposure tiarra sheryl, or exposure time and number of fluorographic images (if radiation exposure indices are not avail able) TECHNICAL DOCUMENTATION: JOB ID: [id number] [employer]- All Rights Reserved Reading location - IP/workstation name: [email or web address]
--- NOTE | 2018-03-05 23:01 | RADIOLOGY REPORT (SQ) ---
EXAM DESCRIPTION: FLUORO/NEEDLE PLACEMENT/SPINE; LUMBAR PUNCTURE COMPLETED DATE/TIME: 03/05/2018 10:51 pm; 03/05/2018 8:33 pm REASON FOR STUDY: 2 PROVIDERS UNABLE TO OBTAIN, AMS/FEVER; 2 providers unable to obtain, ams/fever COMPARISON: CT of the head 03/05/2018. FLUOROSCOPY TIME: 21 seconds 3 images saved to PACS. TECHNIQUE: Fluoroscopic guided lumbar puncture with opening and closing pressures. LIMITATIONS: None. PROCEDURE: After written consent and assessment were obtained, the patient was brought into the fluo roscopy room and placed prone on the table. The patient's lower back was prepped in a sterile fashio n and an entry site was selected under live fluoroscopic guidance. The entry site was anesthetized wi th 1% lidocaine. A 20 gauge needle was advanced through the skin and into the thecal sac at the level of L2-L3. An opening pressure of 16 water units was obtained. After approximately 5.5ml of CSF was drained, a closing pressure of 14 water units was obtained. The needle was removed and a sterile band age was placed of the site. Specimens were sent to the lab for testing. A fluoroscopic spot image was saved to PACS confirming level access. FINDINGS: Clear CSF IMPRESSION: Lumbar puncture under fluoroscopy. No immediate complication. COMMENT: Patient medication list reviewed:Yes- Quality ID# [id number]:Eligible professional attests to docu menting in the medical record they obtained, updated, or reviewed the patient's current medications.. Quality ID 145: Final reports for procedures using fluoroscopy that document radiation exposure tiarra sheryl, or exposure time and number of fluorographic images (if radiation exposure indices are not avail able) TECHNICAL DOCUMENTATION: JOB ID: [id number] [employer]- All Rights Reserved Reading location - IP/workstation name: [email or web address]
[2018-03-05 23:56] LABS: RED BLOOD CELL,CSF 16 /uL (0-10)
[2018-03-05 23:57] LABS: APPEARANCE ALL TUBES CLEAR; APPEARANCE TUBE 1 CLEAR; APPEARANCE TUBE 2 CLEAR; APPEARANCE TUBE 3 CLEAR; APPEARANCE TUBE 4 CLEAR; COLOR ALL TUBES COLORLESS; COLOR TUBE 1 COLORLESS; COLOR TUBE 2 COLORLESS; COLOR TUBE 3 COLORLESS; COLOR TUBE 4 COLORLESS; CSF TUBE NUMBER 1; VOLUME TUBE 1 1.5 CC; WHITE BLOOD CELL,CSF 1 /uL (0-5)
[2018-03-05 23:58] LABS: CSF TOTAL VOLUME 5.5 CC; VOLUME TUBE 2 1.5 CC; VOLUME TUBE 3 1.5 CC
[2018-03-05 23:59] LABS: APPEARANCE ALL TUBES CLEAR; APPEARANCE TUBE 1 CLEAR; APPEARANCE TUBE 2 CLEAR; APPEARANCE TUBE 3 CLEAR; APPEARANCE TUBE 4 CLEAR; COLOR ALL TUBES COLORLESS; COLOR TUBE 1 COLORLESS; COLOR TUBE 2 COLORLESS; COLOR TUBE 3 COLORLESS; COLOR TUBE 4 COLORLESS; CSF TUBE NUMBER 4
[2018-03-06] LABS: CSF TOTAL VOLUME 5.5 CC; GLUCOSE,CSF 63 mg/dL (40-70); PROTEIN,CSF 24 mg/dL (12-60); VOLUME TUBE 1 1.5 CC; VOLUME TUBE 2 1.5 CC; VOLUME TUBE 3 1.5 CC
[2018-03-06 00:06] LABS: RED BLOOD CELL,CSF 3 /uL (0-10)
[2018-03-06 00:07] LABS: WHITE BLOOD CELL,CSF 4 /uL (0-5)
[2018-03-06] MEDS ORDERED: PROMETHAZINE HCL 25 MG TABLET PO PRN (00:26)
[2018-03-06] MEDS ORDERED: MAG HYDROX/AL HYDROX/SIMETH SUSP 30 ML UDCUP PO PRN (00:26)
[2018-03-06] MEDS ORDERED: ACETAMINOPHEN 650 MG SUPP.RECT PR PRN (00:26)
[2018-03-06] MEDS ORDERED: PROMETHAZINE HCL INJ 25 MG/1 ML VIAL IV PRN ×2 (00:26→14:00)
--- NOTE | 2018-03-06 01:47 | PDOC H&P ---
History of Present Illness Admission Date/PCP: 03/06/18 00:39 [facility] Patient complains of: Altered mental status History of Present Illness: YVONNE CONNER JR is a 22 year old male with medical history remarkable for myasthenia gravis. Patient is confused therefore his mother who is at the bedside is giving me the information. Mother tells me that he was off his job since Tuesday until Tuesday so he decided to go with his friends and he had some drinks, apparently he was drunk, he went home around midnight and since then he has been sleeping all day, his mother has noticed that he goes to the kitchen to drink some water and goes right back to his room. Today patient was more confused, has been asking his siblings to help him to the bathroom, when his mother asked him what day was today he was answering first Tuesday and Tuesday, he did not know when was his brother's that was the day before, he shower 5 times. He is usually very talkative, he works in the mental clinic with medications management, never had an episode like this in the past. Patient does not have any neurological focalization. Regarding his myasthenia gravis he has been a couple of years ago on high-dose prednisone has been changed to mycophenolate and it was discontinued in 2015 by his mother was not aware that he was prescribed a new medication that the patient has not been taken. He denies heavy eyelids or weakness on any of his extremities. Patient has been complaining at home of right hip pain during the last few days but an x-ray of the hip was done in the ED which was negative. Mother tells me that he has seasonal allergies and lately his pain had been runny nose and runny eyes. Has been taking antihistamines. As per his severe confusion mother decided to bring him to the emergency department. At the time I want to see him he was a still confused but much better than when he arrived that he was answering to every question that he "needs to go to the bathroom". Continues confused, knows is March but he thinks is 2015. could not tell me the date but could answer that the president is Jennifer. CT of the head negative. Chest x-ray negative. Right hip x-ray negative for fracture or dislocation. Urine drug screen and alcohol levels are negative. lumbar puncture was initially attempted in the ED and was unsuccessful, it was done with fluoroscopy and it came back negative for infection or increased proteins. ED attending gave prophylactically IV Rocephin, Cyclovir and vancomycin. Patient initially spiked 100.7 F that improved with Tylenol. Dr. José neurology resident at [facility] discussed the patient with Dr. Coles emergencyst and did not feel that the patient required transfer for neurology consultation at this time. Past Medical History Past Medical History: Myasthenia gravis GI Medical History: Reports: Other - Small bowel obstruction Psychiatric Medical History: Denies: Depression Past Surgical History Past Surgical History: Reports: Other - Thymus gland removed Umbilical hernia repair as 10 months age Social History Lives with: Family Smoking Status: Never Smoker Frequency of Alcohol Use: Occasional Hx Recreational Drug Use: No Drugs: None Hx Prescription Drug Abuse: No Past Social History Note: Lives with mother and 2 siblings Family History Family History: Arthritis, Hypertension. denies: CAD, COPD, CVA, DM, Hyperlipidemia, Malignancy, Thyroid Disfunction Family History: Mother 46 years old with history of asthma and hypertension, for 51 years old with history of hypertension. 2 healthy siblings. Parental Family History Reviewed: Yes Children Family History Reviewed: Yes Sibling(s) Family History Reviewed.: Yes Medication/Allergy Home Medications: No Home Medications 01/06/18 Allergies/Adverse Reactions: No Known Allergies Allergy (Verified 01/06/18 10:32) Review of Systems Review of Systems: As outlined in the HPI, all others negative Physical Exam Vital Signs: Temp Pulse Resp BP Pulse Ox 98.9 F 90 18 125/74 97 03/06/18 00:32 03/06/18 00:32 03/06/18 00:32 03/06/18 00:32 03/06/18 00:32 Additional comments: General appearance: Well-developed, well-nourished, alert and cooperative, and appears to be in no acute distress Head: Normocephalic Eyes: PEERL, EOMI, vision is grossly intact. Ears: External auditory canal and tympanic membranes clear, hearing grossly intact. Nose: No nasal discharge. Throat: Oral cavity and pharynx normal. No inflammation, swelling, exudate or lesions. Neck: Neck supple, nontender without lymphadenopathy, masses or thyromegaly. Cardiac: Normal S1 and S2. No S3, S4 or murmurs. Rhythm is regular. There is no cyanosis or pallor. Extremities are warm and well perfused. Capillary refill is less than 2 seconds. No carotid bruits. Lungs: Clear to auscultation and percussion without rales, rhonchi, wheezing or diminished breath sounds. Not using accessory muscles. Abdomen: Positive bowel sounds. Soft. Nondistended, nontender. No guarding or rebound. No masses. No hepatosplenomegaly Extremities: No significant deformity or joint abnormality. No edema. Peripheral pulses intact. No varicosities. Neurological: Cranial nerves II through XII grossly intact. Strength and sensation symmetric and intact throughout. Reflexes 2+ throughout. Skin: Skin normal color, texture and turgor with no lesions or eruptions, warm and dry. Psychiatric: The mental examination revealed the patient was oriented to person , takes long time with place, thinks it is March 2016, does not know the date. Answers that the president is Jennifer. Results Laboratory Results: 03/05/18 03/05/18 03/05/18 17:54 17:54 17:54 WBC 7.6 RBC 5.72 H Hgb 17.4 H Hct 49.1 MCV 86 MCH 30.5 MCHC 35.5 RDW 14.2 H Plt Count 161 Seg Neutrophils % 61.8 Lymphocytes % 28.5 Monocytes % 9.3 Eosinophils % 0.0 Basophils % 0.4 Absolute Neutrophils 4.7 Absolute Lymphocytes 2.2 Absolute Monocytes 0.7 Absolute Eosinophils 0.0 Absolute Basophils 0.0 PT INR APTT Carbonic Acid HCO3/H2CO3 Ratio ABG pH ABG pCO2 ABG pO2 ABG HCO3 ABG Total CO2 ABG O2 Saturation ABG Base Excess FiO2 Sodium 139.4 Potassium 3.9 Chloride 97 L Carbon Dioxide 26 Anion Gap 16 BUN 19 Creatinine 1.21 Est GFR ( Amer) > 60 Est GFR (Non-Af Amer) > 60 Glucose 94 Calcium 9.1 Total Bilirubin 1.1 Direct Bilirubin 0.2 AST 97 H ALT 75 H Alkaline Phosphatase 56 Creatine Kinase 1233 H Troponin I Total Protein 8.3 H Albumin 4.8 Lipase 239.7 TSH 1.31 Free T4 1.01 Urine Color Urine Appearance Urine pH Ur Specific [place] Urine Protein Urine Glucose (UA) Urine Ketones Urine Blood Urine Nitrite Urine Bilirubin Urine Urobilinogen Ur Leukocyte Esterase Urine WBC (Auto) Urine RBC (Auto) U Hyaline Cast (Auto) Squamous Epi Cells Auto Urine Mucus (Auto) Urine Ascorbic Acid Fluid Tube Number CSF Volume CSF Appearance CSF Color CSF WBC CSF RBC CSF Color (1) CSF Appearance (1) CSF Color (2) CSF Appearance (2) CSF Color (3) CSF Appearance (3) CSF Color (4) CSF Appearance (4) CSF Glucose CSF Total Protein Salicylates < 1.0 L Urine Opiates Screen Urine Methadone Screen Acetaminophen < 10 L Ur Barbiturates Screen Ur Phencyclidine Scrn Ur Amphetamines Screen U Benzodiazepines Scrn Urine Cocaine Screen U Marijuana (THC) Screen Serum Alcohol 03/05/18 03/05/18 03/05/18 17:54 17:54 18:18 WBC RBC Hgb Hct MCV MCH MCHC RDW Plt Count Seg Neutrophils % Lymphocytes % Monocytes % Eosinophils % Basophils % Absolute Neutrophils Absolute Lymphocytes Absolute Monocytes Absolute Eosinophils Absolute Basophils PT INR APTT Carbonic Acid 1.13 HCO3/H2CO3 Ratio 20:1 ABG pH 7.41 ABG pCO2 37.5 ABG pO2 65.2 L ABG HCO3 23.2 ABG Total CO2 24.3 ABG O2 Saturation 93.1 L ABG Base Excess -1.0 FiO2 ROOM AIR Sodium Potassium Chloride Carbon Dioxide Anion Gap BUN Creatinine Est GFR ( Amer) Est GFR (Non-Af Amer) Glucose Calcium Total Bilirubin Direct Bilirubin AST ALT Alkaline Phosphatase Creatine Kinase Troponin I Total Protein Albumin Lipase TSH Free T4 Urine Color JIMENA Urine Appearance SLIGHTLY-CLOUDY Urine pH 6.0 Ur Specific [place] 1.026 Urine Protein >=500 H Urine Glucose (UA) NEGATIVE Urine Ketones TRACE H Urine Blood SMALL H Urine Nitrite NEGATIVE Urine Bilirubin NEGATIVE Urine Urobilinogen NEGATIVE Ur Leukocyte Esterase NEGATIVE Urine WBC (Auto) 9 Urine RBC (Auto) 2 U Hyaline Cast (Auto) 1 Squamous Epi Cells Auto <1 Urine Mucus (Auto) FEW Urine Ascorbic Acid NEGATIVE Fluid Tube Number CSF Volume CSF Appearance CSF Color CSF WBC CSF RBC CSF Color (1) CSF Appearance (1) CSF Color (2) CSF Appearance (2) CSF Color (3) CSF Appearance (3) CSF Color (4) CSF Appearance (4) CSF Glucose CSF Total Protein Salicylates Urine Opiates Screen NEGATIVE Urine Methadone Screen NEGATIVE Acetaminophen Ur Barbiturates Screen NEGATIVE Ur Phencyclidine Scrn NEGATIVE Ur Amphetamines Screen NEGATIVE U Benzodiazepines Scrn NEGATIVE Urine Cocaine Screen NEGATIVE U Marijuana (THC) Screen NEGATIVE Serum Alcohol 03/05/18 03/05/18 03/05/18 20:55 20:55 20:55 WBC RBC Hgb Hct MCV MCH MCHC RDW Plt Count Seg Neutrophils % Lymphocytes % Monocytes % Eosinophils % Basophils % Absolute Neutrophils Absolute Lymphocytes Absolute Monocytes Absolute Eosinophils Absolute Basophils PT 15.6 H INR 1.18 APTT 41.8 H Carbonic Acid HCO3/H2CO3 Ratio ABG pH ABG pCO2 ABG pO2 ABG HCO3 ABG Total CO2 ABG O2 Saturation ABG Base Excess FiO2 Sodium Potassium Chloride Carbon Dioxide Anion Gap BUN Creatinine Est GFR ( Amer) Est GFR (Non-Af Amer) Glucose Calcium Total Bilirubin Direct Bilirubin AST ALT Alkaline Phosphatase Creatine Kinase Troponin I 0.018 Total Protein Albumin Lipase TSH Free T4 Urine Color Urine Appearance Urine pH Ur Specific [place] Urine Protein Urine Glucose (UA) Urine Ketones Urine Blood Urine Nitrite Urine Bilirubin Urine Urobilinogen Ur Leukocyte Esterase Urine WBC (Auto) Urine RBC (Auto) U Hyaline Cast (Auto) Squamous Epi Cells Auto Urine Mucus (Auto) Urine Ascorbic Acid Fluid Tube Number CSF Volume CSF Appearance CSF Color CSF WBC CSF RBC CSF Color (1) CSF Appearance (1) CSF Color (2) CSF Appearance (2) CSF Color (3) CSF Appearance (3) CSF Color (4) CSF Appearance (4) CSF Glucose CSF Total Protein Salicylates Urine Opiates Screen Urine Methadone Screen Acetaminophen Ur Barbiturates Screen Ur Phencyclidine Scrn Ur Amphetamines Screen U Benzodiazepines Scrn Urine Cocaine Screen U Marijuana (THC) Screen Serum Alcohol < 10 03/05/18 03/05/18 03/05/18 22:29 22:29 22:29 WBC RBC Hgb Hct MCV MCH MCHC RDW Plt Count Seg Neutrophils % Lymphocytes % Monocytes % Eosinophils % Basophils % Absolute Neutrophils Absolute Lymphocytes Absolute Monocytes Absolute Eosinophils Absolute Basophils PT INR APTT Carbonic Acid HCO3/H2CO3 Ratio ABG pH ABG pCO2 ABG pO2 ABG HCO3 ABG Total CO2 ABG O2 Saturation ABG Base Excess FiO2 Sodium Potassium Chloride Carbon Dioxide Anion Gap BUN Creatinine Est GFR ( Amer) Est GFR (Non-Af Amer) Glucose Calcium Total Bilirubin Direct Bilirubin AST ALT Alkaline Phosphatase Creatine Kinase Troponin I Total Protein Albumin Lipase TSH Free T4 Urine Color Urine Appearance Urine pH Ur Specific [place] Urine Protein Urine Glucose (UA) Urine Ketones Urine Blood Urine Nitrite Urine Bilirubin Urine Urobilinogen Ur Leukocyte Esterase Urine WBC (Auto) Urine RBC (Auto) U Hyaline Cast (Auto) Squamous Epi Cells Auto Urine Mucus (Auto) Urine Ascorbic Acid Fluid Tube Number 1 4 CSF Volume 5.5 5.5 CSF Appearance CLEAR CLEAR CSF Color COLORLESS COLORLESS CSF WBC 1 4 CSF RBC 16 3 CSF Color (1) COLORLESS COLORLESS CSF Appearance (1) CLEAR CLEAR CSF Color (2) COLORLESS COLORLESS CSF Appearance (2) CLEAR CLEAR CSF Color (3) COLORLESS COLORLESS CSF Appearance (3) CLEAR CLEAR CSF Color (4) COLORLESS COLORLESS CSF Appearance (4) CLEAR CLEAR CSF Glucose 63 CSF Total Protein 24 Salicylates Urine Opiates Screen Urine Methadone Screen Acetaminophen Ur Barbiturates Screen Ur Phencyclidine Scrn Ur Amphetamines Screen U Benzodiazepines Scrn Urine Cocaine Screen U Marijuana (THC) Screen Serum Alcohol Impressions: Guidance Fluoroscopy 03/05/18 00:00 IMPRESSION: Lumbar puncture under fluoroscopy. No immediate complication. Chest X-Ray 03/05/18 17:36 IMPRESSION: NO ACUTE RADIOGRAPHIC FINDING IN THE CHEST. Hip X-Ray 03/05/18 17:37 IMPRESSION: NEGATIVE STUDY OF THE LEFT HIP AND PELVIS. NO RADIOGRAPHIC EVIDENCE OF ACUTE INJURY. Head CT 03/05/18 17:38 IMPRESSION: NORMAL BRAIN CT WITHOUT CONTRAST. EVIDENCE OF ACUTE STROKE: NO. Lumbar Puncture 03/05/18 20:32 IMPRESSION: Lumbar puncture under fluoroscopy. No immediate complication. Assessment & Plan - Diagnosis (1) Encephalopathy acute Is this a current diagnosis for this admission?: Yes Plan: Acute encephalopathy of unclear etiology, lumbar puncture done in the emergency department which rule out bacterial meningitis, patient does not have any symptomatology consistent with encephalitis. IV Rocephin, Acyclovir and vancomycin given in the ED, will place on hold antibiotics for now he has not signs of infection. Place an order for MRI with and without contrast. Ordered HIV antibodies. Currently patient afebrile after Tylenol given. Mental status has improved but not baseline. IV fluids ordered. Continue telemetry monitoring. Neurochecks every [address] José from [facility] did not recommend the patient to be transferred to their facility for neurologist evaluation. (2) Myasthenia gravis Is this a current diagnosis for this admission?: Yes Plan: Patient is off medications since 2015, as per resident neurologist from [facility] Dr. José was he was supposed to be on CellCept. He is to follow with his neurologist as an outpatient. This is less likely an episode of myasthenia gravis flare. (3) Rhabdomyolysis Qualifiers: Encounter type: initial encounter Is this a current diagnosis for this admission?: Yes Plan: Likely secondary to be laying in bed since last , CK 1233. I will place him on IV fluids with normal saline running at 150 cc/h. CK to be repeated in the morning. (4) DVT prophylaxis Is this a current diagnosis for this admission?: Yes Plan: Lovenox - Time Time Spent: 50 to 70 Minutes - Plan Summary Plan Summary: Case discussed with mother at the bedside, agree with plan.
[2018-03-06] MEDS: NORMAL SALINE 1000 ML 1,000 ML IV PRN ×2 (04:33→16:24)
[2018-03-06 06:44] LABS: ALANINE AMINOTRANSFERASE 67 U/L (21-72); ALBUMIN 3.1 g/dL (3.5-5.0); ALKALINE PHOSPHATASE 36 U/L (38-126); ANION GAP 10 (5-19); ASPARTATE AMINO TRANSFERASE 89 U/L (17-59); BILIRUBIN,DIRECT 0.3 mg/dL (0.0-0.4); BILIRUBIN,TOTAL 0.8 mg/dL (0.2-1.3); BLOOD UREA NITROGEN 16 mg/dL (7-20); CALCIUM 8.1 mg/dL (8.4-10.2); CARBON DIOXIDE 25 mmol/L (22-30); CHLORIDE 105 mmol/L (98-107); CREATINE KINASE 1177 U/L (55-170); GLUCOSE 88 mg/dL (75-110); POTASSIUM 3.6 mmol/L (3.6-5.0); SODIUM 140.4 mmol/L (137-145); TOTAL PROTEIN 5.9 g/dL (6.3-8.2)
[2018-03-06 07:26] LABS: HEMATOCRIT 40.7 % (37.9-51.0); MEAN CORPUSCULAR HEMOGLOBIN 30.3 pg (27.0-33.4); MEAN CORPUSCULAR HGB CONC 35.4 g/dL (32.0-36.0); MEAN CORPUSCULAR VOLUME 86 fl (80-97); RED BLOOD COUNT 4.76 10^6/uL (4.35-5.55); RED CELL DISTRIBUTION WIDTH 13.8 % (11.5-14.0); WHITE BLOOD COUNT 3.4 10^3/uL (4.0-10.5)
[2018-03-06 07:32] LABS: HEMOGLOBIN 14.4 g/dL (13.5-17.0)
[2018-03-06 07:57] LABS: ABSOLUTE LYMPHOCYTES# (MANUAL) 1.6 10^3/uL (0.5-4.7); ABSOLUTE MONOCYTES # (MANUAL) 0.3 10^3/uL (0.1-1.4); ABSOLUTE NEUTROPHILS# (MANUAL) 1.5 10^3/uL (1.7-8.2); BAND NEUTROPHILS % (MANUAL) 7 % (3-5); BASOPHILS % (MANUAL) 0 % (0-2); EOSINOPHILS % (MANUAL) 0 % (0-6); LYMPHOCYTES % (MANUAL) 48 % (13-45); MONOCYTES % (MANUAL) 9 % (3-13); SEGMENTED NEUTROPHILS % (MAN) 36 % (42-78); TOTAL CELLS COUNTED 100
[2018-03-06 08:04] LABS: PLATELET CLUMPS PRESENT; ROULEAUX SLIGHT; TOXIC GRANULATION SLIGHT; TOXIC VACUOLATION PRESENT
[2018-03-06] MEDS: ACETAMINOPHEN 325 MG TABLET PO PRN ×2 (08:35→16:24)
[2018-03-06 08:55] LABS: PLATELET COUNT 131 10^3/uL (150-450)
[2018-03-06 09:37] LABS: A TYPE INFLUENZA AG NEGATIVE (NEGATIVE)
[2018-03-06 09:38] LABS: B INFLUENZA AG NEGATIVE (NEGATIVE)
--- NOTE | 2018-03-06 11:24 | RADIOLOGY REPORT (SQ) ---
EXAM DESCRIPTION: MRI HEAD COMBO COMPLETED DATE/TIME: 03/06/2018 11:07 am REASON FOR STUDY: Altered mental status COMPARISON: 03/05/2018 TECHNIQUE: Multiplanar imaging includes noncontrasted T1, T2, FLAIR, diffusion with ADC map and post gadolinium contrast T1 sequences. Images stored on PACS. CONTRAST TYPE AND DOSE: 20 mL Dotarem. RENAL FUNCTION: None required. The patient is less than 50 years old. LIMITATIONS: None. FINDINGS: ANATOMY: No anomalies. Normal vascular flow voids. Pituitary fossa normal. CSF SPACES: Normal in size and contour. No hemorrhage. CEREBRUM: Sulci and gyri normal in size and contour. Normal white matter signal on FLAIR imaging. No evidence of hemorrhage, mass, or extraaxial fluid collection. No abnormal enhancement post contrast. POSTERIOR FOSSA: No signal alteration. No hemorrhage. No edema, masses, or mass effect. Internal jaden tory canals, cerebellopontine angles, mastoids normal. No enhancing lesions. No abnormal enhancement post contrast. DIFFUSION IMAGING: Negative for acute or subacute infarction. ORBITS: No masses. Globes normal. PARANASAL SINUSES: No fluid levels. Mucosa normal. OTHER: Asymmetric aeration of the petrous apex, normal variant. IMPRESSION: NORMAL MRI OF THE BRAIN WITHOUT AND WITH INTRAVENOUS GADOLINIUM CONTRAST. EVIDENCE OF ACUTE STROKE: NO. TECHNICAL DOCUMENTATION: JOB ID: [id number] [employer]- All Rights Reserved Reading location - IP/workstation name: [email or web address]
[2018-03-06] MEDS: ENOXAPARIN SODIUM INJ 40 MG/0.4 ML DISP.SYRIN SUBCUT SCH (13:59)
--- NOTE | 2018-03-06 15:06 | Physician Advisory Note ---
Physician Advisor ProgressNote .: Pursuant to the plan for [facility], I have reviewed the medical record for this patient. Physician Advisor Statement: Please consider documenting, if you agree: 1. Medical necessity: if this Medicaid pt remains concerning today (03/06), not safe for d/c tonight or in early AM 03/07, please document ongoing acute clinical issues/concerns (? fevers - possible bacterial infxn of unknown etiology, ?recurrent tachycardia, continued mental status still not back to baseline), & may consider change to Inpatient status. Thanks! CK
[2018-03-06] MEDS ORDERED: VANCOMYCIN HCL 0 MG in DEXTROSE 5%-WATER 250 ML IV NR (16:00)
[2018-03-06] MEDS: KETOROLAC TROMETHAMINE INJ/PF 30 MG/1 ML SDV IV PRN (18:26)
[2018-03-06] MEDS: VANCOMYCIN HCL 1,500 MG in DEXTROSE 5%-WATER 250 ML IV SCH (19:06)
[2018-03-06] MEDS: CEFTRIAXONE SODIUM 1,000 MG in DEXTROSE 5%-WATER 50 ML IV SCH (22:26)
[2018-03-06] MEDS: ACYCLOVIR SODIUM 900 MG in NORMAL SALINE 250 ML IV SCH (22:54)
[2018-03-07] MEDS: VANCOMYCIN HCL 1,500 MG in DEXTROSE 5%-WATER 250 ML IV SCH ×3 (01:27→18:31)
[2018-03-07] MEDS: NORMAL SALINE 1000 ML 1,000 ML IV PRN ×2 (01:28→12:11)
[2018-03-07] MEDS: ACETAMINOPHEN 325 MG TABLET PO PRN ×4 (04:19→20:21)
[2018-03-07] MEDS: ACYCLOVIR SODIUM 900 MG in NORMAL SALINE 250 ML IV SCH ×3 (05:18→22:00)
[2018-03-07 09:08] LABS: ALANINE AMINOTRANSFERASE 63 U/L (21-72); ALBUMIN 2.9 g/dL (3.5-5.0); ALKALINE PHOSPHATASE 37 U/L (38-126); ANION GAP 8 (5-19); ASPARTATE AMINO TRANSFERASE 78 U/L (17-59); BILIRUBIN,DIRECT 0.2 mg/dL (0.0-0.4); BILIRUBIN,TOTAL 0.7 mg/dL (0.2-1.3); BLOOD UREA NITROGEN 11 mg/dL (7-20); CALCIUM 8.1 mg/dL (8.4-10.2); CARBON DIOXIDE 25 mmol/L (22-30); CHLORIDE 109 mmol/L (98-107); GLUCOSE 106 mg/dL (75-110); POTASSIUM 3.9 mmol/L (3.6-5.0); SODIUM 142.4 mmol/L (137-145); TOTAL PROTEIN 5.5 g/dL (6.3-8.2)
[2018-03-07 09:40] LABS: ABSOLUTE LYMPHOCYTES (AUTO) 1.6 10^3/uL (0.5-4.7); ABSOLUTE MONOCYTES (AUTO) 0.2 10^3/uL (0.1-1.4); ABSOLUTE NEUT (AUTO) 1.2 10^3/uL (1.7-8.2); BASOPHILS % (AUTO) 0.9 % (0-2); EOSINOPHILS % (AUTO) 0.1 % (0-6); HEMATOCRIT 41.6 % (37.9-51.0); HEMOGLOBIN 14.4 g/dL (13.5-17.0); LYMPHOCYTES % (AUTO) 53.8 % (13-45); MEAN CORPUSCULAR HEMOGLOBIN 29.9 pg (27.0-33.4); MEAN CORPUSCULAR HGB CONC 34.6 g/dL (32.0-36.0); MEAN CORPUSCULAR VOLUME 86 fl (80-97); MONOCYTES % (AUTO) 5.1 % (3-13); PLATELET COUNT 136 10^3/uL (150-450); RED BLOOD COUNT 4.81 10^6/uL (4.35-5.55); RED CELL DISTRIBUTION WIDTH 14.1 % (11.5-14.0); SEGMENTED NEUTROPHILS % (AUTO) 40.1 % (42-78); TOTAL CELLS COUNTED % (AUTO) 100 %; WHITE BLOOD COUNT 2.9 10^3/uL (4.0-10.5)
[2018-03-07] MEDS ORDERED: CEFTRIAXONE 1 GM/D5W RTU 1 GM/50 ML RTUPB IV SCH (10:00)
--- NOTE | 2018-03-07 12:24 | PDOC PROGRESS REPORT ---
Subjective Progress Note for:: 03/07/18 Subjective:: No acute events overnight, patient back to baseline as per mother. Patient is pleasant and cooperative with physical examination. He denies any recent herbal or recreational drug ingestion. She is ambulatory, p.o. tolerant and having normal bowel and bladder function. He still having persistent fever however denies any shortness of breath, chest pain, nausea, vomiting, diarrhea, constipation or any urinary symptoms. On admission it was attempted to transfer patient to [facility] and ED physician talked to neurology team and they suggested that patient did not be to transfer and could be managed here at [facility]. 03/06/2018 I called again [facility] medical talk to Dr. Pablo Alvarenga for possible transfer but he suggested that it did not seem be a neurological problem but could be possibly be aseptic meningitis VS recreational drug ingestion and he should be continued on empiric meningitis treatment and CSF should be sent for causes of viral meningitis. Reason For Visit: ACUTE ENCEPHALOPATHY, RHABDOMYOLYSIS Physical Exam Vital Signs: Temp Pulse Resp BP Pulse Ox 100.1 F 83 16 117/62 95 03/07/18 07:47 03/07/18 07:47 03/07/18 07:47 03/07/18 07:47 03/07/18 07:47 Intake & Output 03/06/18 03/07/18 03/08/18 06:59 06:59 06:59 Intake Total 1999 3136 1000 Output Total 625 Balance 1999 2511 1000 Weight 99 kg 99 kg 102 kg General appearance: PRESENT: no acute distress, well-developed, well-nourished Head exam: PRESENT: atraumatic, normocephalic Respiratory exam: PRESENT: clear to auscultation salma. ABSENT: rales, rhonchi, wheezes Cardiovascular exam: PRESENT: RRR. ABSENT: diastolic murmur, rubs, systolic murmur GI/Abdominal exam: PRESENT: normal bowel sounds, soft. ABSENT: distended, guarding, mass, organolmegaly, rebound, tenderness Neurological exam: PRESENT: alert, awake, oriented to person, oriented to place , oriented to time, oriented to situation, CN II-XII grossly intact. ABSENT: motor sensory deficit Skin exam: PRESENT: dry, intact, warm. ABSENT: cyanosis, rash Results Laboratory Results: 03/07/18 08:21 03/07/18 08:21 03/07/18 03/07/18 08:21 08:21 WBC 2.9 L RBC 4.81 Hgb 14.4 Hct 41.6 MCV 86 MCH 29.9 MCHC 34.6 RDW 14.1 H Plt Count 136 L Seg Neutrophils % 40.1 L Lymphocytes % 53.8 H Monocytes % 5.1 Eosinophils % 0.1 Basophils % 0.9 Absolute Neutrophils 1.2 L Absolute Lymphocytes 1.6 Absolute Monocytes 0.2 Absolute Eosinophils 0.0 Absolute Basophils 0.0 Sodium 142.4 Potassium 3.9 Chloride 109 H Carbon Dioxide 25 Anion Gap 8 BUN 11 Creatinine 1.10 Est GFR ( Amer) > 60 Est GFR (Non-Af Amer) > 60 Glucose 106 Calcium 8.1 L Total Bilirubin 0.7 AST 78 H ALT 63 Alkaline Phosphatase 37 L Total Protein 5.5 L Albumin 2.9 L 03/06/18 03/07/18 06:11 08:21 Creatine Kinase 1177 H 1079 H Impressions: Guidance Fluoroscopy 03/05/18 00:00 IMPRESSION: Lumbar puncture under fluoroscopy. No immediate complication. Chest X-Ray 03/05/18 17:36 IMPRESSION: NO ACUTE RADIOGRAPHIC FINDING IN THE CHEST. Hip X-Ray 03/05/18 17:37 IMPRESSION: NEGATIVE STUDY OF THE LEFT HIP AND PELVIS. NO RADIOGRAPHIC EVIDENCE OF ACUTE INJURY. Head CT 03/05/18 17:38 IMPRESSION: NORMAL BRAIN CT WITHOUT CONTRAST. EVIDENCE OF ACUTE STROKE: NO. Lumbar Puncture 03/05/18 20:32 IMPRESSION: Lumbar puncture under fluoroscopy. No immediate complication. Head MRI 03/06/18 00:00 IMPRESSION: NORMAL MRI OF THE BRAIN WITHOUT AND WITH INTRAVENOUS GADOLINIUM CONTRAST. EVIDENCE OF ACUTE STROKE: NO. Assessment & Plan - Diagnosis (1) Encephalopathy acute Is this a current diagnosis for this admission?: Yes Plan: Metabolic (recreational drug) VS infectious. Improved. Still having persistent high-grade fever. Normal physical examination. Negative for any meningeal sign. 03/05/2018 CT head negative for any acute abnormalities. 03/05/2018 lumbar puncture CSF analysis negative for any infectious process. 03/06/2018 MRI brain negative for any acute abnormalities. HIV, influenza a and B negative on admission.. Continue empiric treatment for possible meningitis. Pending CSF analysis for HSV, West Nile, VZV and enterococcus. We will keep inpatient while patient is having persistent fever. (2) Hx of myasthenia gravis Is this a current diagnosis for this admission?: No Plan: Does not seem to be on myasthenic crisis. Patient used to take mycophenolate mofetil but was stopped in 2016. (3) Elevated liver enzymes Is this a current diagnosis for this admission?: Yes Plan: Unlikely cause. Patient denies any ingestion of recreational drug. HIV negative on admission. Will order hepatitis panel to rule out any infectious hepatitis. LFT tomorrow. (4) Fever of unknown origin Is this a current diagnosis for this admission?: Yes Plan: As per problem #1.
[2018-03-07] MEDS: ENOXAPARIN SODIUM INJ 40 MG/0.4 ML DISP.SYRIN SUBCUT SCH (14:32)
[2018-03-07 18:16] LABS: VANCOMYCIN,TROUGH 20.8 ug/mL (5.0-20.0)
--- NOTE | 2018-03-07 19:22 | Progress Note ---
Provider Note Provider Note: ID Telephone Consultation Note Asked to review patient's chart by Pharmacy. Pt is not seen or examined. Reviewed notes in [facility] EHR, vitals, labs, provider reports and imaging reports. Mr. Emanuel is a 22 year old man with PMH including myasthenia gravis (on no home medications) who presented to the [facility] ED on 03/05/18 because of confusion for 48-72h, according to the patient's mother. According to the ED provider notes, the patient's mother reported he had a night of heavy drinking, then was hung over and stayed in bed, seeming very confused, weak having difficult walking, not answering questions appropriately. Pt was noted to have fever to 100.7 F, hypertension, lethargy and disorientation, and dry mucous membranes but otherwise unremarkable/nonfocal exam. Pt also reported some hip pain, but this had resolved by the time of the second ED provider's assessment. Per H&P, pt's mother also reported that the patient had been having runny nose and eyes due to seasonal allergies and was taking antihistamines. At the time of his hospital admission, pt had some improvement in his confusion. No oropharyngeal injection, swelling or exudates were noted, nor was any neck stiffness, cervical lymphadenopathy, murmur on cardiac exam, adventitious lung sounds, abdominal tenderness, HSM, or skin eruptions. Lab and imaging studies included Elevated cPK 1233 units/L and AST 97, normal bilirubin and ALT and alkaline phosphatase on presentation. SCr 1.2. Normal WBC count 7.6 on presentation with unremarkable differential. Negative or unremarakble UDS, serum alcohol, salicylate level, acetaminophen level. HIV 1&2 antibody test negative. Rapid influenza A&B test negative. BCx negative x 24h LP on 03/05 yielded clear colorless CSF with normal opening pressure 16 cm water , no pleocytosis, normal glucose, normal total protein, no bacteria or PMNs seen on CSF Gram stain and no bacterial growth x 1 day. CXR 2 view with no acute radiographic finding, L hip plain films with no evidence of acute injury or worrisome bone lesions, and CT head w/o contrast read as normal on 03/05; MRI brain with and without gadolinium contrast was normal. Per notes, case was discussed with Neurology at [facility] and recommendation was made for w/u of viral causes of aseptic meningits vs recreational drug ingestion as etiology of pt's presentation. Pt has returned to baseline, according to his mother. Pt continues to have fevers ranging from 101-102 F. WBC count most recently was 2.9k with slightly increased lymphocyte percentage. Impression/Recommendations Fever Possible toxic/metabolic encephalopathy related to ingestion/intoxication vs encephalitis Rhabdomyolysis - Fever may be related to a viral syndrome or to rhabdomyolysis, which is also inflammatory. - Pt's CSF formula is entirely inconsistent with bacterial meningitis, Gram stain is negative, CSF cx is negative x 1 day, BCx negative x 1 day. Recommend discontinuing Rocephin and vancomycin at this point. - CSF formula is not particularly suggestive of encephalitis (pleocytosis is common along with elevated CSF protein and absent in the pt). MRI bnormalities are seen in about 90% of cases of HSV encephalitis, but pt's MRI brain was normal. HSV encephalitis is not out of the question, but it is less likely. While HSV PCR is in process, continuing IV acyclovir may be reasonable. Rolando Ospina MD [facility] pager [phone]
[2018-03-07] MEDS: CEFTRIAXONE SODIUM 1,000 MG in DEXTROSE 5%-WATER 50 ML IV SCH (22:00)
[2018-03-08] MEDS ORDERED: VANCOMYCIN HCL 1,250 MG in DEXTROSE 5%-WATER 250 ML IV SCH (02:00)
[2018-03-08] MEDS: ACYCLOVIR SODIUM 900 MG in NORMAL SALINE 250 ML IV SCH ×3 (05:21→21:27)
[2018-03-08] MEDS: NORMAL SALINE 1000 ML 1,000 ML IV PRN (05:22)
[2018-03-08 05:30] LABS: ALANINE AMINOTRANSFERASE 74 U/L (21-72); ALBUMIN 3.3 g/dL (3.5-5.0); ALKALINE PHOSPHATASE 39 U/L (38-126); ANION GAP 7 (5-19); ASPARTATE AMINO TRANSFERASE 105 U/L (17-59); BILIRUBIN,DIRECT 0.3 mg/dL (0.0-0.4); BILIRUBIN,TOTAL 0.6 mg/dL (0.2-1.3); BLOOD UREA NITROGEN 11 mg/dL (7-20); CALCIUM 8.8 mg/dL (8.4-10.2); CARBON DIOXIDE 28 mmol/L (22-30); CHLORIDE 110 mmol/L (98-107); GLUCOSE 93 mg/dL (75-110); POTASSIUM 4.2 mmol/L (3.6-5.0); TOTAL PROTEIN 6.1 g/dL (6.3-8.2)
[2018-03-08 09:14] LABS: ABSOLUTE LYMPHOCYTES (AUTO) 1.7 10^3/uL (0.5-4.7); ABSOLUTE MONOCYTES (AUTO) 0.2 10^3/uL (0.1-1.4); ABSOLUTE NEUT (AUTO) 1.2 10^3/uL (1.7-8.2); BASOPHILS % (AUTO) 0.6 % (0-2); EOSINOPHILS % (AUTO) 0.1 % (0-6); HEMATOCRIT 44.5 % (37.9-51.0); HEMOGLOBIN 15.3 g/dL (13.5-17.0); MEAN CORPUSCULAR HEMOGLOBIN 30.2 pg (27.0-33.4); MEAN CORPUSCULAR HGB CONC 34.4 g/dL (32.0-36.0); MEAN CORPUSCULAR VOLUME 88 fl (80-97); PLATELET COUNT 116 10^3/uL (150-450); RED BLOOD COUNT 5.07 10^6/uL (4.35-5.55); RED CELL DISTRIBUTION WIDTH 14.2 % (11.5-14.0); SEGMENTED NEUTROPHILS % (AUTO) 39.3 % (42-78); TOTAL CELLS COUNTED % (AUTO) 100 %; WHITE BLOOD COUNT 3.1 10^3/uL (4.0-10.5)
[2018-03-08] MEDS: ENOXAPARIN SODIUM INJ 40 MG/0.4 ML DISP.SYRIN SUBCUT SCH (09:29)
--- NOTE | 2018-03-08 10:31 | PDOC PROGRESS REPORT ---
Subjective Progress Note for:: 03/08/18 Subjective:: No acute events overnight, patient back to baseline as per mother. Patient is pleasant and cooperative with physical examination. He denies any recent herbal or recreational drug ingestion. She is ambulatory, p.o. tolerant and having normal bowel and bladder function. He still having persistent fever however denies any shortness of breath, chest pain, nausea, vomiting, diarrhea, constipation or any urinary symptoms. On admission it was attempted to transfer patient to [place] and ED physician talked to neurology team and they suggested that patient did not be to transfer and could be managed here at [place]. 03/06/2018 I called again [place] medical talk to Dr. Pablo Alvarenga for possible transfer but he suggested that it did not seem be a neurological problem but could be possibly be aseptic meningitis VS recreational drug ingestion and he should be continued on empiric meningitis treatment and CSF should be sent for causes of viral meningitis. 03/08/2018. No acute events overnight. Patient alert oriented, cooperative and very pleasant, p.o. tolerant, having normal bowel and bladder function. He is stating that he is feeling better has not had any chills, nausea, vomiting, diarrhea, constipation or any urinary symptoms. His left hip pain has resolved. Reason For Visit: ACUTE ENCEPHALOPATHY, RHABDOMYOLYSIS Physical Exam Vital Signs: Temp Pulse Resp BP Pulse Ox 99.9 F 95 16 114/68 95 03/08/18 07:07 03/08/18 07:07 03/08/18 07:07 03/08/18 07:07 03/08/18 07:07 Intake & Output 03/07/18 03/08/18 03/09/18 06:59 06:59 06:59 Intake Total 3136 6336 268 Output Total 430 4800 Balance 2511 1536 268 Weight 99 kg 98.8 kg General appearance: PRESENT: no acute distress, well-developed, well-nourished Head exam: PRESENT: atraumatic, normocephalic Cardiovascular exam: PRESENT: RRR. ABSENT: diastolic murmur, rubs, systolic murmur GI/Abdominal exam: PRESENT: normal bowel sounds, soft. ABSENT: distended, guarding, mass, organolmegaly, rebound, tenderness Extremities exam: PRESENT: full ROM. ABSENT: calf tenderness, clubbing, pedal edema Neurological exam: PRESENT: alert, awake, oriented to person, oriented to place , oriented to time, oriented to situation, CN II-XII grossly intact. ABSENT: motor sensory deficit Results Laboratory Results: 03/08/18 04:44 03/08/18 04:44 03/08/18 03/08/18 04:44 04:44 WBC 3.1 L RBC 5.07 Hgb 15.3 Hct 44.5 MCV 88 MCH 30.2 MCHC 34.4 RDW 14.2 H Plt Count 116 L Seg Neutrophils % 39.3 L Lymphocytes % 53.0 H Monocytes % 7.0 Eosinophils % 0.1 Basophils % 0.6 Absolute Neutrophils 1.2 L Absolute Lymphocytes 1.7 Absolute Monocytes 0.2 Absolute Eosinophils 0.0 Absolute Basophils 0.0 Sodium 145.0 Potassium 4.2 Chloride 110 H Carbon Dioxide 28 Anion Gap 7 BUN 11 Creatinine 1.56 H Est GFR ( Amer) > 60 Est GFR (Non-Af Amer) 55 L Glucose 93 Calcium 8.8 Total Bilirubin 0.6 AST 105 H ALT 74 H Alkaline Phosphatase 39 Total Protein 6.1 L Albumin 3.3 L 03/06/18 03/07/18 06:11 08:21 Creatine Kinase 1177 H 1079 H Impressions: Guidance Fluoroscopy 03/05/18 00:00 IMPRESSION: Lumbar puncture under fluoroscopy. No immediate complication. Chest X-Ray 03/05/18 17:36 IMPRESSION: NO ACUTE RADIOGRAPHIC FINDING IN THE CHEST. Hip X-Ray 03/05/18 17:37 IMPRESSION: NEGATIVE STUDY OF THE LEFT HIP AND PELVIS. NO RADIOGRAPHIC EVIDENCE OF ACUTE INJURY. Head CT 03/05/18 17:38 IMPRESSION: NORMAL BRAIN CT WITHOUT CONTRAST. EVIDENCE OF ACUTE STROKE: NO. Lumbar Puncture 03/05/18 20:32 IMPRESSION: Lumbar puncture under fluoroscopy. No immediate complication. Head MRI 03/06/18 00:00 IMPRESSION: NORMAL MRI OF THE BRAIN WITHOUT AND WITH INTRAVENOUS GADOLINIUM CONTRAST. EVIDENCE OF ACUTE STROKE: NO. Assessment & Plan - Diagnosis (1) Fever of unknown origin Is this a current diagnosis for this admission?: Yes Plan: Metabolic versus encephalitis versus rhabdomyolysis. Still having persistent high-grade fever. Normal physical examination. Negative for any meningeal sign. 03/05/2018 CT head negative for any acute abnormalities. 03/05/2018 lumbar puncture CSF analysis negative for any infectious process. 03/06/2018 MRI brain negative for any acute abnormalities. HIV, influenza a and B negative on admission. Pending CSF analysis for HSV, West Nile, VZV and enterococcus. Received 3 days of empiric IV vancomycin and Rocephin. DC'd on 03/08/2018 as per ID recommendation. Day 4 of IV acyclovir. (2) Encephalopathy acute Is this a current diagnosis for this admission?: Yes Plan: Improving. Back to baseline. Metabolic versus encephalitis versus rhabdomyolysis. Still having persistent high-grade fever. Normal physical examination. Negative for any meningeal sign. 03/05/2018 CT head negative for any acute abnormalities. 03/05/2018 lumbar puncture CSF analysis negative for any infectious process. 03/06/2018 MRI brain negative for any acute abnormalities. HIV, influenza a and B negative on admission. Pending CSF analysis for HSV, West Nile, VZV and enterococcus. Received 3 days of empiric IV vancomycin and Rocephin. DC'd on 03/08/2018 as per ID recommendation. Day 4 of IV acyclovir. (3) Hx of myasthenia gravis Is this a current diagnosis for this admission?: No Plan: Does not seem to be on myasthenic crisis. Patient used to take mycophenolate mofetil but was stopped in 2015. (4) Elevated liver enzymes Is this a current diagnosis for this admission?: Yes Plan: Unlikely cause could be due to rhabdomyolysis. Patient denies any ingestion of recreational drug. HIV negative on admission. Hepatitis panel pending LFT tomorrow. (5) Rhabdomyolysis Qualifiers: Encounter type: initial encounter Is this a current diagnosis for this admission?: Yes Plan: Unidentified cause. Likely due to toxic ingestion/intoxication, or coming from the left hip patient may have produced rhabdomyolysis due to being on the floor for prolonged time because of altered mental status. Continue IV fluid. (6) PARVIN (acute kidney injury) Is this a current diagnosis for this admission?: Yes Plan: Likely due to rhabdomyolysis/vancomycin Continue lactated Ringer's.. Monitor volume status and electrolytes. BMP tomorrow. If does not improve will consult nephrology.
[2018-03-08] MEDS: KETOROLAC TROMETHAMINE INJ/PF 30 MG/1 ML SDV IV PRN (11:09)
[2018-03-08] MEDS: ACETAMINOPHEN 325 MG TABLET PO PRN (17:08)
[2018-03-08] MEDS: RINGERS SOLUTION,LACTATED 1,000 ML IV PRN (21:28)
[2018-03-08 23:36] LABS: HSV I DNA Negative (Negative)
[2018-03-09 05:56] LABS: HEMATOCRIT 41.8 % (37.9-51.0); HEMOGLOBIN 14.3 g/dL (13.5-17.0); MEAN CORPUSCULAR HEMOGLOBIN 29.6 pg (27.0-33.4); MEAN CORPUSCULAR HGB CONC 34.2 g/dL (32.0-36.0); MEAN CORPUSCULAR VOLUME 87 fl (80-97); PLATELET COUNT 101 10^3/uL (150-450); RED BLOOD COUNT 4.83 10^6/uL (4.35-5.55); RED CELL DISTRIBUTION WIDTH 14.1 % (11.5-14.0)
[2018-03-09] MEDS: ACYCLOVIR SODIUM 900 MG in NORMAL SALINE 250 ML IV SCH ×4 (06:01→22:15)
[2018-03-09] MEDS: RINGERS SOLUTION,LACTATED 1,000 ML IV PRN (06:02)
[2018-03-09 06:15] LABS: ALANINE AMINOTRANSFERASE 72 U/L (21-72); ALKALINE PHOSPHATASE 37 U/L (38-126); ANION GAP 7 (5-19); ASPARTATE AMINO TRANSFERASE 97 U/L (17-59); BILIRUBIN,DIRECT 0.4 mg/dL (0.0-0.4); BILIRUBIN,TOTAL 0.9 mg/dL (0.2-1.3); BLOOD UREA NITROGEN 10 mg/dL (7-20); CALCIUM 8.6 mg/dL (8.4-10.2); CARBON DIOXIDE 27 mmol/L (22-30); CHLORIDE 110 mmol/L (98-107); GLUCOSE 95 mg/dL (75-110); POTASSIUM 4.3 mmol/L (3.6-5.0); SODIUM 143.8 mmol/L (137-145); TOTAL PROTEIN 5.7 g/dL (6.3-8.2)
[2018-03-09 06:32] LABS: ABSOLUTE LYMPHOCYTES# (MANUAL) 1.8 10^3/uL (0.5-4.7); ABSOLUTE MONOCYTES # (MANUAL) 0.4 10^3/uL (0.1-1.4); ABSOLUTE NEUTROPHILS# (MANUAL) 0.8 10^3/uL (1.7-8.2); BAND NEUTROPHILS % (MANUAL) 9 % (3-5); BASOPHILS % (MANUAL) 0 % (0-2); EOSINOPHILS % (MANUAL) 0 % (0-6); LYMPHOCYTES % (MANUAL) 51 % (13-45); MONOCYTES % (MANUAL) 13 % (3-13); SEGMENTED NEUTROPHILS % (MAN) 17 % (42-78); TOTAL CELLS COUNTED 100
[2018-03-09 06:33] LABS: PLATELET COMMENT DECREASED; RBC MORPHOLOGY COMMENT NORMO-CYTIC/CHROMIC; TOXIC VACUOLATION PRESENT
[2018-03-09 07:44] LABS: HEPATITIS A AB IGM Negative (Negative); HEPATITIS B CORE AB IGM Negative (Negative); HEPATITS B SURFACE ANTIGEN Negative (Negative)
[2018-03-09] MEDS: ENOXAPARIN SODIUM INJ 40 MG/0.4 ML DISP.SYRIN SUBCUT SCH (09:00)
[2018-03-09 09:51] LABS: HSV II DNA Negative (Negative)
[2018-03-09 09:53] LABS: HEPATITIS C VIRUS ANTIBODY <0.1 s/co ratio (0.0-0.9)
--- NOTE | 2018-03-09 17:24 | PDOC PROGRESS REPORT ---
Subjective Progress Note for:: 03/09/18 Subjective:: No acute events overnight, patient back to baseline as per mother. Patient is pleasant and cooperative with physical examination. He denies any recent herbal or recreational drug ingestion. She is ambulatory, p.o. tolerant and having normal bowel and bladder function. He still having persistent fever however denies any shortness of breath, chest pain, nausea, vomiting, diarrhea, constipation or any urinary symptoms. On admission it was attempted to transfer patient to [place] and ED physician talked to neurology team and they suggested that patient did not be to transfer and could be managed here at [place]. 03/06/2018 I called again [place] medical talk to Dr. Pablo Alvarenga for possible transfer but he suggested that it did not seem be a neurological problem but could be possibly be aseptic meningitis VS recreational drug ingestion and he should be continued on empiric meningitis treatment and CSF should be sent for causes of viral meningitis. 03/08/2018. No acute events overnight. Patient alert oriented, cooperative and very pleasant, p.o. tolerant, having normal bowel and bladder function. He is stating that he is feeling better has not had any chills, nausea, vomiting, diarrhea, constipation or any urinary symptoms. His left hip pain has resolved. 03/09/2018. No acute events overnight. Patient is resting comfortably in his bed very pleasant and cooperative with physical examination. Patient is ambulatory, p.o. tolerant and having normal bladder and bowel movements. He is denying any fever, nausea, vomiting, diarrhea, constipation or any urinary symptoms. Patient is still running low-grade fever. Reason For Visit: ACUTE ENCEPHALOPATHY, RHABDOMYOLYSIS Physical Exam Vital Signs: Temp Pulse Resp BP Pulse Ox 98.9 F 58 L 15 152/87 H 100 03/09/18 15:47 03/09/18 15:47 03/09/18 15:47 03/09/18 15:47 03/09/18 15:47 Intake & Output 03/08/18 03/09/18 03/10/18 06:59 06:59 06:59 Intake Total 6336 4135 1781 Output Total 1970 2375 1100 Balance 1536 1760 681 Weight 98.8 kg 100 kg General appearance: PRESENT: no acute distress, well-developed, well-nourished Head exam: PRESENT: atraumatic, normocephalic Eye exam: PRESENT: conjunctiva pink, EOMI, PERRLA. ABSENT: scleral icterus Ear exam: PRESENT: normal external ear exam Mouth exam: PRESENT: moist, tongue midline Neck exam: ABSENT: carotid bruit, JVD, lymphadenopathy, thyromegaly Respiratory exam: PRESENT: clear to auscultation salma. ABSENT: rales, rhonchi, wheezes Cardiovascular exam: PRESENT: RRR. ABSENT: diastolic murmur, rubs, systolic murmur Pulses: PRESENT: normal dorsalis pedis pul Vascular exam: PRESENT: normal capillary refill GI/Abdominal exam: PRESENT: normal bowel sounds, soft. ABSENT: distended, guarding, mass, organolmegaly, rebound, tenderness Rectal exam: PRESENT: deferred Extremities exam: PRESENT: full ROM. ABSENT: calf tenderness, clubbing, pedal edema Neurological exam: PRESENT: alert, awake, oriented to person, oriented to place , oriented to time, oriented to situation, CN II-XII grossly intact. ABSENT: motor sensory deficit Psychiatric exam: PRESENT: appropriate affect, normal mood. ABSENT: homicidal ideation, suicidal ideation Skin exam: PRESENT: dry, intact, warm. ABSENT: cyanosis, rash Results Laboratory Results: 03/09/18 05:11 03/09/18 05:11 03/09/18 03/09/18 05:11 05:11 WBC 3.0 L RBC 4.83 Hgb 14.3 Hct 41.8 MCV 87 MCH 29.6 MCHC 34.2 RDW 14.1 H Plt Count 101 L Seg Neutrophils % Not Reportable Lymphocytes % Not Reportable Monocytes % Not Reportable Eosinophils % Not Reportable Basophils % Not Reportable Absolute Neutrophils Not Reportable Absolute Lymphocytes Not Reportable Absolute Monocytes Not Reportable Absolute Eosinophils Not Reportable Absolute Basophils Not Reportable Sodium 143.8 Potassium 4.3 Chloride 110 H Carbon Dioxide 27 Anion Gap 7 BUN 10 Creatinine 1.24 Est GFR ( Amer) > 60 Est GFR (Non-Af Amer) > 60 Glucose 95 Calcium 8.6 Total Bilirubin 0.9 AST 97 H ALT 72 Alkaline Phosphatase 37 L Total Protein 5.7 L Albumin 3.0 L 03/06/18 03/07/18 06:11 08:21 Creatine Kinase 1177 H 1079 H Impressions: Guidance Fluoroscopy 03/05/18 00:00 IMPRESSION: Lumbar puncture under fluoroscopy. No immediate complication. Chest X-Ray 03/05/18 17:36 IMPRESSION: NO ACUTE RADIOGRAPHIC FINDING IN THE CHEST. Hip X-Ray 03/05/18 17:37 IMPRESSION: NEGATIVE STUDY OF THE LEFT HIP AND PELVIS. NO RADIOGRAPHIC EVIDENCE OF ACUTE INJURY. Head CT 03/05/18 17:38 IMPRESSION: NORMAL BRAIN CT WITHOUT CONTRAST. EVIDENCE OF ACUTE STROKE: NO. Lumbar Puncture 03/05/18 20:32 IMPRESSION: Lumbar puncture under fluoroscopy. No immediate complication. Head MRI 03/06/18 00:00 IMPRESSION: NORMAL MRI OF THE BRAIN WITHOUT AND WITH INTRAVENOUS GADOLINIUM CONTRAST. EVIDENCE OF ACUTE STROKE: NO. Assessment & Plan - Diagnosis (1) Fever of unknown origin Is this a current diagnosis for this admission?: Yes Plan: Metabolic versus encephalitis versus rhabdomyolysis. Patient was afebrile for 24 hours but had another temperature of 99.0. If afebrile by tomorrow will discharge to follow-up with PCP and neurology. Normal physical examination. Negative for any meningeal sign. 03/05/2018 CT head negative for any acute abnormalities. 03/05/2018 lumbar puncture CSF analysis negative for any infectious process. 03/06/2018 MRI brain negative for any acute abnormalities. 03/09/2018. Hepatitis panel, HSV-1 HSV-2 by PCR from CSF negative. HIV, influenza a and B negative on admission. Pending CSF analysis West Nile, VZV and enterococcus. Received 3 days of empiric IV vancomycin and Rocephin. DC'd on 03/08/2018 as per ID recommendation. Day 5 of IV acyclovir. (2) Encephalopathy acute Is this a current diagnosis for this admission?: Yes Plan: Improving. Back to baseline. Metabolic versus encephalitis versus rhabdomyolysis. Still having persistent high-grade fever. Normal physical examination. Negative for any meningeal sign. 03/05/2018 CT head negative for any acute abnormalities. 03/05/2018 lumbar puncture CSF analysis negative for any infectious process. 03/06/2018 MRI brain negative for any acute abnormalities. HIV, influenza a and B negative on admission. Pending CSF analysis for HSV, West Nile, VZV and enterococcus. Received 3 days of empiric IV vancomycin and Rocephin. DC'd on 03/08/2018 as per ID recommendation. Day 4 of IV acyclovir. (3) Hx of myasthenia gravis Is this a current diagnosis for this admission?: No Plan: Does not seem to be on myasthenic crisis. Patient used to take mycophenolate mofetil but was stopped in 2016. I had attempted to transfer patient to [facility] where he sees neurology regularly but transfer was rejected due to the fact that he may not have had any myasthenia related symptoms. (4) Elevated liver enzymes Is this a current diagnosis for this admission?: Yes Plan: Unlikely cause could be due to rhabdomyolysis. Patient denies any ingestion of recreational drug. HIV negative on admission. Hepatitis panel negative. Liver function enzymes are stable but is still elevated. LFT tomorrow. (5) Rhabdomyolysis Qualifiers: Encounter type: initial encounter Is this a current diagnosis for this admission?: Yes Plan: Unidentified cause. Likely due to toxic ingestion/intoxication, or coming from the left hip patient may have produced rhabdomyolysis due to being on the floor for prolonged time because of altered mental status. Continue IV fluid. (6) PARVIN (acute kidney injury) Is this a current diagnosis for this admission?: Yes Plan: Improved. Creatinine 1.29. Likely due to rhabdomyolysis/vancomycin Continue lactated Ringer's.. Monitor volume status and electrolytes. BMP tomorrow. If does not improve will consult nephrology.
[2018-03-10] MEDS: RINGERS SOLUTION,LACTATED 1,000 ML IV PRN (03:29)
[2018-03-10] MEDS: ACYCLOVIR SODIUM 900 MG in NORMAL SALINE 250 ML IV SCH ×2 (05:33→15:12)
[2018-03-10 05:35] LABS: ALANINE AMINOTRANSFERASE 126 U/L (21-72); ALBUMIN 3.2 g/dL (3.5-5.0); ALKALINE PHOSPHATASE 44 U/L (38-126); ANION GAP 7 (5-19); ASPARTATE AMINO TRANSFERASE 140 U/L (17-59); BILIRUBIN,DIRECT 0.5 mg/dL (0.0-0.4); BILIRUBIN,TOTAL 1.2 mg/dL (0.2-1.3); BLOOD UREA NITROGEN 13 mg/dL (7-20); CALCIUM 8.6 mg/dL (8.4-10.2); CARBON DIOXIDE 30 mmol/L (22-30); CHLORIDE 107 mmol/L (98-107); GLUCOSE 99 mg/dL (75-110); POTASSIUM 4.2 mmol/L (3.6-5.0); SODIUM 143.7 mmol/L (137-145); TOTAL PROTEIN 5.9 g/dL (6.3-8.2)
--- NOTE | 2018-03-10 10:08 | RADIOLOGY REPORT (SQ) ---
EXAM DESCRIPTION: U/S ABDOMEN LIMITED W/O DOP COMPLETED DATE/TIME: 03/10/2018 9:53 am REASON FOR STUDY: ELEVATED LFT'S COMPARISON: None. TECHNIQUE: Dynamic and static grayscale images acquired of the abdomen and recorded on PACS. Additio nal selected color Doppler and spectral images recorded. LIMITATIONS: None. FINDINGS: PANCREAS: No masses. No peripancreatic edema or fluid collections. LIVER: Echotexture is coarse with increased echogenicity consistent with fatty infiltration. LIVER VASCULATURE: Normal directional flow of the main portal vein. GALLBLADDER: There is some increased echogenicity in the dependent portion of the gallbladder lumen w hich could represent biliary sludge or tiny gallstones. Normal wall thickness. No pericholecystic flu id. ULTRASOUND-DETECTED FARNSWORTH'S SIGN: Negative. INTRAHEPATIC DUCTS AND COMMON DUCT: CBD and intrahepatic ducts normal caliber. No filling defects. INFERIOR VENA CAVA: Normal flow. AORTA: No aneurysm. RIGHT KIDNEY: Right kidney measures 11.6 cm in length. Normal echogenicity. No solid or suspicio us masses. No hydronephrosis. No calcifications. PERITONEAL AND RIGHT PLEURAL SPACE: No ascites or effusions. OTHER: No other significant finding. IMPRESSION: FATTY INFILTRATION OF THE LIVER. Increased echogenicity in the dependent portion of the gallbladder lumen which could represent biliary sludge or tiny gallstones. Other findings as noted above TECHNICAL DOCUMENTATION: JOB ID: [id number] [employer]- All Rights Reserved Reading location - IP/workstation name: [email or web address]
[2018-03-10] MEDS: ENOXAPARIN SODIUM INJ 40 MG/0.4 ML DISP.SYRIN SUBCUT SCH (11:13)
[2018-03-10 15:29] VITALS: BP 113/63
--- NOTE | 2018-03-10 15:32 | PDOC DISCHARGE SUMMARY ---
General - Admit/Disc Date/PCP Admission Date/Primary Care Provider: 03/06/18 00:39 Discharge Date: 03/10/18 - Discharge Diagnosis (1) Fever of unknown origin Is this a current diagnosis for this admission?: Yes (2) Encephalopathy acute Is this a current diagnosis for this admission?: Yes (3) Hx of myasthenia gravis Is this a current diagnosis for this admission?: No (4) Elevated liver enzymes Is this a current diagnosis for this admission?: Yes (5) Rhabdomyolysis Is this a current diagnosis for this admission?: Yes (6) PARVIN (acute kidney injury) Is this a current diagnosis for this admission?: Yes - Additional Information Resuscitation Status: Full Code Discharge Diet: As Tolerated Discharge Activity: No Driving, Slowly Increase Activity Home Medications: No Home Medications 01/06/18 History of Present Illness History of Present Illness: YVONNE CONNER JR is a 22 year old male with medical history remarkable for myasthenia gravis. Patient is confused therefore his mother who is at the bedside is giving me the information. Mother tells me that he was off his job since Tuesday until Tuesday so he decided to go with his friends and he had some drinks, apparently he was drunk, he went home around midnight and since then he has been sleeping all day, his mother has noticed that he goes to the kitchen to drink some water and goes right back to his room. Today patient was more confused, has been asking his siblings to help him to the bathroom, when his mother asked him what day was today he was answering first Tuesday and Tuesday, he did not know when was his brother's that was the day before, he shower 5 times. He is usually very talkative, he works in the mental clinic with medications management, never had an episode like this in the past. Patient does not have any neurological focalization. Regarding his myasthenia gravis he has been a couple of years ago on high-dose prednisone has been changed to mycophenolate and it was discontinued in 2015 by his mother was not aware that he was prescribed a new medication that the patient has not been taken. He denies heavy eyelids or weakness on any of his extremities. Patient has been complaining at home of right hip pain during the last few days but an x-ray of the hip was done in the ED which was negative. Mother tells me that he has seasonal allergies and lately his pain had been runny nose and runny eyes. Has been taking antihistamines. As per his severe confusion mother decided to bring him to the emergency department. At the time I want to see him he was a still confused but much better than when he arrived that he was answering to every question that he "needs to go to the bathroom". Continues confused, knows is March but he thinks is 2015. could not tell me the date but could answer that the president is Jennifer. CT of the head negative. Chest x-ray negative. Right hip x-ray negative for fracture or dislocation. Urine drug screen and alcohol levels are negative. lumbar puncture was initially attempted in the ED and was unsuccessful, it was done with fluoroscopy and it came back negative for infection or increased proteins. ED attending gave prophylactically IV Rocephin, Cyclovir and vancomycin. Patient initially spiked 100.7 F that improved with Tylenol. Dr. José neurology resident at [facility] discussed the patient with Dr. Coles emergencyst and did not feel that the patient required transfer for neurology consultation at this time.No acute events overnight, patient back to baseline as per mother. Patient is pleasant and cooperative with physical examination. He denies any recent herbal or recreational drug ingestion. She is ambulatory, p.o. tolerant and having normal bowel and bladder function. He still having persistent fever however denies any shortness of breath, chest pain, nausea, vomiting, diarrhea, constipation or any urinary symptoms. On admission it was attempted to transfer patient to [facility] and ED physician talked to neurology team and they suggested that patient did not be to transfer and could be managed here at [facility]. 03/06/2018 I called again [facility] medical talk to Dr. Pablo Alvarenga for possible transfer but he suggested that it did not seem be a neurological problem but could be possibly be aseptic meningitis VS recreational drug ingestion and he should be continued on empiric meningitis treatment and CSF should be sent for causes of viral meningitis. 03/08/2018. No acute events overnight. Patient alert oriented, cooperative and very pleasant, p.o. tolerant, having normal bowel and bladder function. He is stating that he is feeling better has not had any chills, nausea, vomiting, diarrhea, constipation or any urinary symptoms. His left hip pain has resolved. 03/09/2018. No acute events overnight. Patient is resting comfortably in his bed very pleasant and cooperative with physical examination. Patient is ambulatory, p.o. tolerant and having normal bladder and bowel movements. He is denying any fever, nausea, vomiting, diarrhea, constipation or any urinary symptoms. Patient is still running low-grade fever. Hospital Course Hospital Course: (1) Fever of unknown origin Metabolic versus encephalitis versus rhabdomyolysis. Patient remained afebrile more than 24 hours before discharge. Normal physical examination. Negative for any meningeal sign. 03/05/2018 CT head negative for any acute abnormalities. 03/05/2018 lumbar puncture CSF analysis negative for any infectious process. 03/06/2018 MRI brain negative for any acute abnormalities. 03/09/2018. Hepatitis panel, HSV-1 HSV-2 by PCR from CSF negative. HIV, influenza a and B negative on admission. Pending CSF analysis West Nile, VZV and enterococcus. Received 3 days of empiric IV vancomycin and Rocephin. DC'd on 03/08/2018 as per ID recommendation. Day 6 of IV acyclovir. He was strongly encouraged to follow-up with his PCP and neurologist. (2) Encephalopathy acute Back to baseline. Metabolic versus encephalitis versus rhabdomyolysis. Still having persistent high-grade fever. Normal physical examination. Negative for any meningeal sign. 03/05/2018 CT head negative for any acute abnormalities. 03/05/2018 lumbar puncture CSF analysis negative for any infectious process. 03/06/2018 MRI brain negative for any acute abnormalities. HIV, influenza a and B negative on admission. Pending CSF analysis for HSV, West Nile, VZV and enterococcus. Received 3 days of empiric IV vancomycin and Rocephin. DC'd on 03/08/2018 as per ID recommendation. Day 6 of IV acyclovir. (3) Hx of myasthenia gravis Does not seem to be on myasthenic crisis. Patient used to take mycophenolate mofetil but was stopped in 2016. I had attempted to transfer patient to [facility] where he sees neurology regularly but transfer was rejected due to the fact that he may not have had any myasthenia related symptoms. He was strongly encouraged to follow-up with his neurologist. (4) Elevated liver enzymes Unlikely cause could be due to rhabdomyolysis. Patient denies any ingestion of recreational drug. HIV negative on admission. Hepatitis panel negative. Liver function enzymes are stable but is still elevated. 03/10/2018. Liver ultrasound showed fatty infiltration which could likely be caused by his underlying alcohol He was also given lab to do CBC and CMP on follow-up with his PCP in 1 week. (5) Rhabdomyolysis Unidentified cause. Likely due to toxic ingestion/intoxication, or coming from the left hip patient may have produced rhabdomyolysis due to being on the floor for prolonged time because of altered mental status. He received IV fluids while inpatient. (6) PARVIN (acute kidney injury) Resolved. Electrolytes within normal limits on the day of discharge. Likely due to rhabdomyolysis/vancomycin Continue lactated Ringer's.. Monitor volume status and electrolytes. BMP tomorrow. If does not improve will consult nephrology. Physical Exam Vital Signs: Temp Pulse Resp BP Pulse Ox 99.0 F 51 L 16 113/63 98 03/10/18 15:26 03/10/18 15:26 03/10/18 15:26 03/10/18 15:26 03/10/18 15:26 Intake & Output 03/09/18 03/10/18 03/11/18 06:59 06:59 06:59 Intake Total 4135 3317 100 Output Total 2375 3175 300 Balance 1760 142 -200 Weight 100 kg 98 kg General appearance: PRESENT: no acute distress, well-developed, well-nourished Head exam: PRESENT: atraumatic, normocephalic Eye exam: PRESENT: conjunctiva pink, EOMI, PERRLA. ABSENT: scleral icterus Ear exam: PRESENT: normal external ear exam Mouth exam: PRESENT: moist, tongue midline Neck exam: ABSENT: carotid bruit, JVD, lymphadenopathy, thyromegaly Respiratory exam: PRESENT: clear to auscultation salma. ABSENT: rales, rhonchi, wheezes Cardiovascular exam: PRESENT: RRR. ABSENT: diastolic murmur, rubs, systolic murmur Pulses: PRESENT: normal dorsalis pedis pul Vascular exam: PRESENT: normal capillary refill GI/Abdominal exam: PRESENT: normal bowel sounds, soft. ABSENT: distended, guarding, mass, organolmegaly, rebound, tenderness Rectal exam: PRESENT: deferred Extremities exam: PRESENT: full ROM. ABSENT: calf tenderness, clubbing, pedal edema Neurological exam: PRESENT: alert, awake, oriented to person, oriented to place , oriented to time, oriented to situation, CN II-XII grossly intact. ABSENT: motor sensory deficit Psychiatric exam: PRESENT: appropriate affect, normal mood. ABSENT: homicidal ideation, suicidal ideation Skin exam: PRESENT: dry, intact, warm. ABSENT: cyanosis, rash Results Laboratory Results: 03/09/18 05:11 03/10/18 04:24 03/10/18 04:24 Sodium 143.7 Potassium 4.2 Chloride 107 Carbon Dioxide 30 Anion Gap 7 BUN 13 Creatinine 1.13 Est GFR ( Amer) > 60 Est GFR (Non-Af Amer) > 60 Glucose 99 Calcium 8.6 Total Bilirubin 1.2 AST 140 H ALT 126 H Alkaline Phosphatase 44 Total Protein 5.9 L Albumin 3.2 L 03/06/18 03/07/18 06:11 08:21 Creatine Kinase 1177 H 1079 H Impressions: Guidance Fluoroscopy 03/05/18 00:00 IMPRESSION: Lumbar puncture under fluoroscopy. No immediate complication. Chest X-Ray 03/05/18 17:36 IMPRESSION: NO ACUTE RADIOGRAPHIC FINDING IN THE CHEST. Hip X-Ray 03/05/18 17:37 IMPRESSION: NEGATIVE STUDY OF THE LEFT HIP AND PELVIS. NO RADIOGRAPHIC EVIDENCE OF ACUTE INJURY. Head CT 03/05/18 17:38 IMPRESSION: NORMAL BRAIN CT WITHOUT CONTRAST. EVIDENCE OF ACUTE STROKE: NO. Lumbar Puncture 03/05/18 20:32 IMPRESSION: Lumbar puncture under fluoroscopy. No immediate complication. Head MRI 03/06/18 00:00 IMPRESSION: NORMAL MRI OF THE BRAIN WITHOUT AND WITH INTRAVENOUS GADOLINIUM CONTRAST. EVIDENCE OF ACUTE STROKE: NO. Abdomen Ultrasound 03/10/18 00:00 IMPRESSION: FATTY INFILTRATION OF THE LIVER. Increased echogenicity in the dependent portion of the gallbladder lumen which could represent biliary sludge or tiny gallstones. Other findings as noted above Qualifiers - * PATIENT BEING DISCHARGED WITH ANY OF THE FOLLOWING DIAGNOSIS: No VTE patient discharged on overlapping Therapy?: Yes
== END 2018-03-10 15:45 | disposition home or self-care (01) | DRG 71 ==
LOC: ER 17:02 → OBSVTOIN 03-06 00:39 → EH 03-06 00:39 → 3W 03-06 02:55
PROVIDERS: ADMIT Internal Medicine; ATTEND Internal Medicine
PROC: 009U3ZX Drainage of Spinal Canal, Percutaneous Approach, Diagnostic (ICD-10-PCS; principal; 2018-03-05)
PROC: B01BZZZ Fluoroscopy of Spinal Cord (ICD-10-PCS; 2018-03-05)
PROC: 00JU3ZZ Inspection of Spinal Canal, Percutaneous Approach (ICD-10-PCS; 2018-03-05)
DX: G93.41 Metabolic encephalopathy (principal); M62.82 Rhabdomyolysis; N17.9 Acute kidney failure, unspecified; R50.9 Fever, unspecified; G70.00 Myasthenia gravis without (acute) exacerbation; M25.551 Pain in right hip; T45.1X6A Underdosing of antineoplastic and immunosuppressive drugs, initial encounter; R94.5 Abnormal results of liver function studies; R26.2 Difficulty in walking, not elsewhere classified; Z91.128 Patient's intentional underdosing of medication regimen for other reason; Z82.49 Family history of ischemic heart disease and other diseases of the circulatory system; Z83.6 Family history of other diseases of the respiratory system; Z82.3 Family history of stroke; Z83.3 Family history of diabetes mellitus; Z84.89 Family history of other specified conditions
CPT/HCPCS: 36415; 62270; 70450; 70553; 71046; 76705; 77003; 80053; 80074; 80202; 80307; 81001; 82550; 82803; 82945; 83520; 83605; 83690; 84157; 84439; 84443; 84484; 85025; 85610; 85730; 86701; 87040; 87070; 87205; 87252; 87529; 87804; 89050; 93005; 93010; 99291; A9576; G0378; J0133; J0696; J1885; J2250; J2550; J3370; J3411; J3490; J7030; J7050; J7060; J7120

== ENCOUNTER → 2018-03-15 | Outpatient (CLI) | payer MEDICAID, OTHER ==
[2018-03-15 14:23] LABS: HEMATOCRIT 44.5 % (37.9-51.0); HEMOGLOBIN 15.2 g/dL (13.5-17.0); MEAN CORPUSCULAR HEMOGLOBIN 29.9 pg (27.0-33.4); MEAN CORPUSCULAR VOLUME 88 fl (80-97); PLATELET COUNT 349 10^3/uL (150-450); RED BLOOD COUNT 5.07 10^6/uL (4.35-5.55); RED CELL DISTRIBUTION WIDTH 13.8 % (11.5-14.0); WHITE BLOOD COUNT 4.3 10^3/uL (4.0-10.5)
[2018-03-15 14:52] LABS: ALANINE AMINOTRANSFERASE 401 U/L (21-72); ALBUMIN 4.4 g/dL (3.5-5.0); ALKALINE PHOSPHATASE 65 U/L (38-126); ANION GAP 11 (5-19); ASPARTATE AMINO TRANSFERASE 127 U/L (17-59); BILIRUBIN,DIRECT 0.4 mg/dL (0.0-0.4); BLOOD UREA NITROGEN 17 mg/dL (7-20); CALCIUM 9.7 mg/dL (8.4-10.2); CARBON DIOXIDE 29 mmol/L (22-30); CHLORIDE 107 mmol/L (98-107); GLUCOSE 88 mg/dL (75-110); POTASSIUM 4.7 mmol/L (3.6-5.0); SODIUM 147.1 mmol/L (137-145); TOTAL PROTEIN 7.9 g/dL (6.3-8.2)
[2018-03-15 15:08] LABS: ABSOLUTE LYMPHOCYTES# (MANUAL) 1.8 10^3/uL (0.5-4.7); ABSOLUTE MONOCYTES # (MANUAL) 0.6 10^3/uL (0.1-1.4); ABSOLUTE NEUTROPHILS# (MANUAL) 1.8 10^3/uL (1.7-8.2); BASOPHILS % (MANUAL) 0 % (0-2); EOSINOPHILS % (MANUAL) 0 % (0-6); LYMPHOCYTES % (MANUAL) 41 % (13-45); MONOCYTES % (MANUAL) 15 % (3-13); SEGMENTED NEUTROPHILS % (MAN) 42 % (42-78); TOTAL CELLS COUNTED 100
[2018-03-15 15:09] LABS: PLATELET COMMENT ADEQUATE; RBC MORPHOLOGY COMMENT NORMO-CYTIC/CHROMIC; TOXIC GRANULATION SLIGHT; TOXIC VACUOLATION PRESENT
== END ==
LOC: CCC 12:44
DX: Z00.00 Encounter for general adult medical examination without abnormal findings (principal)
CPT/HCPCS: 36415; 80053; 83036; 84443; 85025

== ENCOUNTER 2018-10-28 13:26 | Emergency (ER) | payer BC, MEDICAID, OTHER ==
[2018-10-28] MEDS ORDERED: CEFTRIAXONE INJ 250 MG VIAL IM ONE (14:11)
[2018-10-28] MEDS ORDERED: DOXYCYCLINE HYCLATE 100 MG TABLET PO ONE (14:11)
[2018-10-28] MEDS ORDERED: LIDOCAINE 1% INJ-PF (10 MG/ML) 30 ML SDV INJ ONE (14:11)
[2018-10-28] MEDS ORDERED: AZITHROMYCIN 250 MG TABLET PO ONE (14:11)
--- NOTE | 2018-10-28 14:18 | ER Document Report ---
ED GI/ - General Chief Complaint: STD Exposure Stated Complaint: POSSIBLE STD EXPOSURE Time Seen by Provider: 10/28/18 13:40 Mode of Arrival: Ambulatory Information source: Patient Notes: 23-year-old male presented to ED for complaint of concern for STDs. He states he just found out yesterday he was HIV positive and is very tearful. He states he would like to be tested and treated for GC and chlamydia. He states he has an appointment with HIV clinic and they would do other testing. But he would like to be tested and treated for these. Patient is alert oriented respirations regular and unlabored speaking in full sentences. TRAVEL OUTSIDE OF THE [place] IN LAST 30 DAYS: No - HPI Patient complains to provider of: Other Onset: Yesterday Timing/Duration: Persistent Quality of pain: No pain Location: Other Associated symptoms: Other Exacerbated by: Denies Relieved by: Denies Similar symptoms previously: Yes Recently seen / treated by doctor: Yes - Related Data Allergies/Adverse Reactions: No Known Allergies Allergy (Verified 10/28/18 13:27) Past Medical History - General Information source: Patient - Social History Smoking Status: Unknown if Ever Smoked Frequency of alcohol use: None Drug Abuse: None Lives with: Alone Family History: Arthritis, Hypertension Patient has suicidal ideation: No Patient has homicidal ideation: No - Past Medical History Cardiac Medical History: Reports: None Pulmonary Medical History: Reports: None EENT Medical History: Reports: None Neurological Medical History: Reports: Other - Myasthenia gravis Endocrine Medical History: Reports: None Renal/ Medical History: Reports: None Malignancy Medical History: Reports None GI Medical History: Reports: Other - Umbilical hernia Skin Medical History: Reports None Psychiatric Medical History: Reports: None Traumatic Medical History: Reports: None Infectious Medical History: Reports: None Past Surgical History: Reports: Hx Inguinal Hernia, Hx Umbilical Hernia, Other - Thymus gland removed Umbilical hernia repair as 10 months age - Immunizations Immunizations up to date: Yes Hx Diphtheria, Pertussis, Tetanus Vaccination: Yes Review of Systems - Review of Systems Constitutional: No symptoms reported EENT: No symptoms reported Cardiovascular: No symptoms reported Respiratory: No symptoms reported Gastrointestinal: No symptoms reported Genitourinary: No symptoms reported Male Genitourinary: Other - Very concern for STD no symptoms at this time was just diagnosed with HIV Musculoskeletal: No symptoms reported Skin: No symptoms reported Hematologic/Lymphatic: No symptoms reported Neurological/Psychological: Depression - Tearful due to new recent diagnosis -: Yes All other systems reviewed and negative Physical Exam - Vital signs Vitals: Temp Pulse Resp BP Pulse Ox 98.7 F 88 20 154/85 H 97 10/28/18 13:40 10/28/18 13:40 10/28/18 13:40 10/28/18 13:40 10/28/18 13:40 Interpretation: Normal - General General appearance: Appears well, Alert - HEENT Head: Normocephalic, Atraumatic Eyes: Normal Pupils: PERRL - Respiratory Respiratory status: No respiratory distress Chest status: Nontender Breath sounds: Normal Chest palpation: Normal - Cardiovascular Rhythm: Regular Heart sounds: Normal auscultation Murmur: No - Abdominal Inspection: Normal Distension: No distension Bowel sounds: Normal Tenderness: Nontender Organomegaly: No organomegaly - Back Back: Normal, Nontender - Extremities General upper extremity: Normal inspection, Nontender, Normal color, Normal ROM, Normal temperature General lower extremity: Normal inspection, Nontender, Normal color, Normal ROM, Normal temperature, Normal weight bearing. No: Boone's sign - Neurological Neuro grossly intact: Yes Cognition: Normal Orientation: AAOx4 Adriana Coma Scale Eye Opening: Spontaneous Adriana Coma Scale Verbal: Oriented Adriana Coma Scale Motor: Obeys Commands Adriana Coma Scale Total: 15 Speech: Normal Motor strength normal: LUE, RUE, LLE, RLE Sensory: Normal - Psychological Associated symptoms: Normal affect, Normal mood - Skin Skin Temperature: Warm Skin Moisture: Dry Skin Color: Normal Course - Vital Signs Vital signs: Temp Pulse Resp BP Pulse Ox 98.5 F 80 16 148/86 H 100 10/28/18 15:11 10/28/18 15:11 10/28/18 15:11 10/28/18 15:11 10/28/18 15:11 - Laboratory Laboratory results interpreted by me: 10/28/18 13:55 Urine Urobilinogen 2.0 H Discharge - Discharge Clinical Impression: Concern about STD in male without diagnosis, recent dx of hiv Condition: Stable Disposition: HOME, SELF-CARE Additional Instructions: Was seen today for concern for TDs. She states she was recently diagnosed with HIV. We have treated with you with Rocephin and azithromycin and doxycycline for your concern for STDs. Please keep your appointment with the HIV clinic they will do further testing. If you would like to know the results for your GC and chlamydia you can call [phone] in about 3 hours for your results. CEPHALOSPORINS: An antibiotic of the cephalosporin class has been prescribed. This type of antibiotic covers a wide variety of infections, including those of the skin, lungs, middle ear, and urinary tract. This antibiotic is somewhat similar to the penicillin family. In rare cases, a person who is allergic to penicillin will also be allergic to this medication. If you have had a severe allergic reaction to penicillin, and have not taken this antibiotic since that time, notify your doctor. Antibiotics which cover many germs ("broad spectrum" antibiotics) are more likely to cause diarrhea or "yeast" infections. Women prone to vaginal yeast problems may suffer an attack after taking this antibiotic. In infants, oral thrush (white spots "stuck" on the cheek) or yeast diaper rash may result. See your doctor if these problems occur. Call the doctor at once if you develop hives, itching, shortness of breath, or lightheadedness. DOXYCYCLINE: Doxycycline (Vibramycin, Doryx) is an antibiotic of the tetracycline family. This type of drug is useful for infections of the respiratory tract and genital tract, and is sometimes used for intestinal infections. Unlike most tetracyclines, doxycycline can be taken with food. It is longer acting, and (usually) less prone to side effects than regular tetracycline. Tetracycline antibiotics can stain immature teeth and SHOULD NOT BE TAKEN BY CHILDREN, NURSING MOTHERS, OR WOMEN. Tetracyclines can make you more prone to sunburn. Abdominal cramping, nausea, and diarrhea are occasional side effects. Women may experience vaginal yeast infections. Call the doctor at once if you develop hives, itching, shortness of breath, or lightheadedness. AZITHROMYCIN: Azithromycin (Zithromax) is a broad spectrum antibiotic in the same class as erythromycin. It can treat a variety of bacterial infections, but is most frequently used for respiratory infections. Azithromycin is extremely long-lasting. It accumulates in body tissues and continues to kill bacteria for many days. In order to improve absorption, Azithromycin should be taken at least one hour before or two hours after a meal. It does not have the same strong tendency to upset the stomach as erythromycin and is usually very well tolerated. Patients who have had a rash or other true allergic reactions to erythromycin should not take this medication. Call if you develop gastrointestinal distress, severe diarrhea, rash, hives, itching, or shortness of breath. FOLLOW-UP CARE: If you have been referred to a physician for follow-up care, call the physicians office for an appointment as you were instructed or within the next two days. If you experience worsening or a significant change in your symptoms, notify the physician immediately or return to the Emergency Department at any time for re-evaluation. Prescriptions: Doxycycline Hyclate 100 mg PO BID #14 capsule Forms: Elevated Blood Pressure
[2018-10-28 14:34] LABS: APPEARANCE,URINE CLEAR; BILIRUBIN,URINE NEGATIVE (NEGATIVE); COLOR,URINE YELLOW; GLUCOSE, URINE NEGATIVE (NEGATIVE); KETONES,URINE NEGATIVE (NEGATIVE); LEUKOCYTE ESTERASE,URINE NEGATIVE (NEGATIVE); NITRITE,URINE NEGATIVE (NEGATIVE); PROTEIN,URINE NEGATIVE (NEGATIVE); URINE SPECIFIC GRAVITY 1.025
[2018-10-28 15:12] VITALS: BP 148/86
[2018-10-28 15:59] LABS: CHLAM PCR NOT DETECTED (NOT DETECT)
== END 2018-10-28 15:11 | disposition home or self-care (01) ==
LOC: ER 13:26
DX: Z20.2 Contact with and (suspected) exposure to infections with a predominantly sexual mode of transmission (principal); Z21 Asymptomatic human immunodeficiency virus [HIV] infection status; F32.9 Major depressive disorder, single episode, unspecified
CPT/HCPCS: 99283; 96372; 87086; 81001; 87491; 87591; J3490; J0696

== ENCOUNTER 2019-02-05 15:14 | Emergency (ER) | payer BC ==
--- NOTE | 2019-02-05 15:40 | ER Document Report ---
ED Medical Screen (RME) - General Chief Complaint: Neck Problem Stated Complaint: NECK WEAKNESS Time Seen by Provider: 02/05/19 15:36 Mode of Arrival: Ambulatory Information source: Patient Notes: Patient states that he was diagnosed with myasthenia gravis 2008. He states he has developed some weakness in his throat and his tongue is heavy about a week and a half ago. He states he does not know if his myasthenia gravis is coming back. He states he does not have a local primary doctor. He states he was very concerned so he came to the emergency room. He denies any pain at this time. Patient states he did have some alcohol this past weekend but usually is about once a month. He states he is HIV positive. I have greeted and performed a rapid initial assessment of this patient. A comprehensive ED assessment and evaluation of the patient, analysis of test results and completion of medical decision making process will be conducted by an additional ED providers. TRAVEL OUTSIDE OF THE [place] IN LAST 30 DAYS: No - Related Data Allergies/Adverse Reactions: No Known Allergies Allergy (Verified 02/05/19 15:34) Past Medical History Renal/ Medical History: Denies: Hx Peritoneal Dialysis Psychiatric Medical History: Denies: Hx Depression Past Surgical History: Reports: Hx Inguinal Hernia, Hx Umbilical Hernia, Other - Thymus gland removed Umbilical hernia repair as 10 months age - Immunizations Immunizations up to date: Yes Hx Diphtheria, Pertussis, Tetanus Vaccination: Yes Physical Exam - Vital signs Vitals: Temp Pulse Resp BP Pulse Ox 98.1 F 74 16 166/93 H 100 02/05/19 15:18 02/05/19 15:18 02/05/19 15:18 02/05/19 15:18 02/05/19 15:18 Course - Vital Signs Vital signs: Temp Pulse Resp BP Pulse Ox 98.1 F 74 16 166/93 H 100 02/05/19 15:18 02/05/19 15:18 02/05/19 15:18 02/05/19 15:18 02/05/19 15:18
[2019-02-05 16:15] LABS: ABSOLUTE EOSINOPHILS # (AUTO) 0.1 10^3/uL (0.0-0.6); ABSOLUTE LYMPHOCYTES (AUTO) 2.4 10^3/uL (0.5-4.7); ABSOLUTE MONOCYTES (AUTO) 0.5 10^3/uL (0.1-1.4); ABSOLUTE NEUT (AUTO) 2.7 10^3/uL (1.7-8.2); BASOPHILS % (AUTO) 0.5 % (0-2); EOSINOPHILS % (AUTO) 1.1 % (0-6); HEMATOCRIT 46.1 % (37.9-51.0); HEMOGLOBIN 15.6 g/dL (13.5-17.0); LYMPHOCYTES % (AUTO) 41.8 % (13-45); MEAN CORPUSCULAR HEMOGLOBIN 29.7 pg (27.0-33.4); MEAN CORPUSCULAR HGB CONC 33.7 g/dL (32.0-36.0); MEAN CORPUSCULAR VOLUME 88 fl (80-97); MONOCYTES % (AUTO) 8.2 % (3-13); PLATELET COUNT 184 10^3/uL (150-450); RED BLOOD COUNT 5.24 10^6/uL (4.35-5.55); RED CELL DISTRIBUTION WIDTH 15.1 % (11.5-14.0); SEGMENTED NEUTROPHILS % (AUTO) 48.4 % (42-78); TOTAL CELLS COUNTED % (AUTO) 100 %; WHITE BLOOD COUNT 5.7 10^3/uL (4.0-10.5)
[2019-02-05 16:20] LABS: APPEARANCE,URINE CLEAR; BILIRUBIN,URINE NEGATIVE (NEGATIVE); COLOR,URINE YELLOW; GLUCOSE, URINE NEGATIVE (NEGATIVE); KETONES,URINE NEGATIVE (NEGATIVE); LEUKOCYTE ESTERASE,URINE NEGATIVE (NEGATIVE); NITRITE,URINE NEGATIVE (NEGATIVE); PROTEIN,URINE NEGATIVE (NEGATIVE); URINE SPECIFIC GRAVITY 1.016
[2019-02-05 16:30] LABS: ALBUMIN 4.5 g/dL (3.5-5.0); ALKALINE PHOSPHATASE 54 U/L (38-126); ANION GAP 8 (5-19); ASPARTATE AMINO TRANSFERASE 25 U/L (17-59); BILIRUBIN,TOTAL 1.7 mg/dL (0.2-1.3); BLOOD UREA NITROGEN 9 mg/dL (7-20); CALCIUM 9.5 mg/dL (8.4-10.2); CARBON DIOXIDE 32 mmol/L (22-30); CHLORIDE 100 mmol/L (98-107); GLUCOSE 93 mg/dL (75-110); POTASSIUM 3.4 mmol/L (3.6-5.0); TOTAL PROTEIN 7.8 g/dL (6.3-8.2)
--- NOTE | 2019-02-05 18:45 | ER Document Report ---
ED General - General Chief Complaint: Neck Problem Stated Complaint: NECK WEAKNESS Time Seen by Provider: 02/05/19 15:36 Mode of Arrival: Ambulatory Notes: Mr. Jenae Ulloa is a 23-year-old male with past medical history of myasthenia gravis and HIV last viral dose undetectable presenting to the emergency department for throat weakness. Patient states that this began 1 to 2 days ago. He denies any fevers or chills, chest pain, cough or productive sputum. He feels as if his anterior neck is weak as well as his tongue being heavy. He denies any difficulty swallowing or taking p.o. with either liquids or solids. He denies any abdominal pain, nausea, vomiting or diarrhea. He states that he has not had a myasthenia gravis flare in over a year and has not had any weakness with repetitive motions, eyelid heaviness or drooping, or difficulty breathing. Patient denies any known ill contacts. TRAVEL OUTSIDE OF THE [place] IN LAST 30 DAYS: No - Related Data Allergies/Adverse Reactions: No Known Allergies Allergy (Verified 02/05/19 15:34) Home Medications: victarvy Past Medical History - General Information source: Patient - Social History Smoking Status: Unknown if Ever Smoked Chew tobacco use (# tins/day): No Frequency of alcohol use: Occasional Drug Abuse: None Family History: Arthritis, Hypertension Patient has suicidal ideation: No Patient has homicidal ideation: No Renal/ Medical History: Denies: Hx Peritoneal Dialysis Psychiatric Medical History: Denies: Hx Depression Past Surgical History: Reports: Hx Inguinal Hernia, Hx Umbilical Hernia, Other - Thymus gland removed Umbilical hernia repair as 10 months age - Immunizations Immunizations up to date: Yes Hx Diphtheria, Pertussis, Tetanus Vaccination: Yes Review of Systems - Review of Systems Constitutional: See HPI EENT: See HPI Cardiovascular: No symptoms reported Respiratory: No symptoms reported Gastrointestinal: No symptoms reported Genitourinary: No symptoms reported Male Genitourinary: No symptoms reported Musculoskeletal: No symptoms reported Skin: No symptoms reported Hematologic/Lymphatic: No symptoms reported Neurological/Psychological: No symptoms reported Physical Exam - Vital signs Vitals: Temp Pulse Resp BP Pulse Ox 98.1 F 74 16 166/93 H 100 02/05/19 15:18 02/05/19 15:18 02/05/19 15:18 02/05/19 15:18 02/05/19 15:18 Interpretation: Hypertensive - General General appearance: Appears well, Alert - HEENT Head: Normocephalic, Atraumatic Eyes: Normal Pupils: PERRL Pharynx: Erythema - Mildly erythematous posterior oropharynx. No exudates. No tonsillar swelling or deviation of the uvula. - Respiratory Respiratory status: No respiratory distress Chest status: Nontender Breath sounds: Normal Chest palpation: Normal - Cardiovascular Rhythm: Regular Heart sounds: Normal auscultation Murmur: No - Abdominal Inspection: Normal Distension: No distension Bowel sounds: Normal Tenderness: Nontender Organomegaly: No organomegaly - Back Back: Normal, Nontender - Extremities General upper extremity: Normal inspection, Nontender, Normal color, Normal ROM, Normal temperature General lower extremity: Normal inspection, Nontender, Normal color, Normal ROM, Normal temperature, Normal weight bearing. No: Boone's sign - Neurological Neuro grossly intact: Yes Cognition: Normal Orientation: AAOx4 [place] Coma Scale Eye Opening: Spontaneous [place] Coma Scale Verbal: Oriented Adriana Coma Scale Motor: Obeys Commands Adriana Coma Scale Total: 15 Speech: Normal Motor strength normal: LUE, RUE, LLE, RLE Sensory: Normal - Psychological Associated symptoms: Normal affect, Normal mood - Skin Skin Temperature: Warm Skin Moisture: Dry Skin Color: Normal Course - Re-evaluation Re-evalutation: Patient is generally well-appearing and nontoxic. Initial vitals noted for mildly elevated blood pressure. He had set he often gets anxious when he sees a physician and has been diagnosed with whitecoat syndrome previously. He denies any other medical problems other than myasthenia gravis and HIV however he is actively taking heart medications with an undetectable viral load. 02/05/19 18:44 Respiratory evaluated the patient and he had a NIF of 36. 02/05/19 20:30 Patient felt improved after viscous lidocaine. Given return precautions. No evidence of acute myasthenia flare at this point in time. Labs and swabs otherwise unremarkable. Patient given return precautions. - Vital Signs Vital signs: Temp Pulse Resp BP Pulse Ox 98.1 F 74 16 166/93 H 100 02/05/19 15:18 02/05/19 15:18 02/05/19 15:18 02/05/19 15:18 02/05/19 15:18 - Laboratory Result Diagrams: 02/05/19 15:46 02/05/19 15:46 Laboratory results interpreted by me: 02/05/19 02/05/19 02/05/19 15:46 15:46 15:46 RDW 15.1 H Potassium 3.4 L Carbon Dioxide 32 H Total Bilirubin 1.7 H Urine Blood SMALL H Urine Urobilinogen 2.0 H Discharge - Discharge Clinical Impression: Throat discomfort, Viral pharyngitis Condition: Good Disposition: HOME, SELF-CARE Instructions: Upper Respiratory Illness ([facility]), Viral Syndrome ([facility]) Prescriptions: Lidocaine HCl 4 ml TP BID 10 Days ml
[2019-02-05] MEDS ORDERED: LIDOCAINE 2% VISCOUS SOLN 20 ML UDCUP PO ONE (19:58)
[2019-02-05 20:58] VITALS: BP 161/93
== END 2019-02-05 20:59 | disposition home or self-care (01) ==
LOC: ER 15:14
DX: J02.8 Acute pharyngitis due to other specified organisms (principal); B97.89 Other viral agents as the cause of diseases classified elsewhere; G70.00 Myasthenia gravis without (acute) exacerbation; Z21 Asymptomatic human immunodeficiency virus [HIV] infection status; Z79.899 Other long term (current) drug therapy
CPT/HCPCS: 36415; 87070; 87210; 87880; 85025; 80053; 81001; J3490; 96374; 99283

== ENCOUNTER 2019-04-08 19:51 | Emergency (ER) | payer BC, OTHER ==
[2019-04-08] MEDS ORDERED: DICYCLOMINE HCL 20 MG TABLET PO ONE (20:48)
--- NOTE | 2019-04-08 20:51 | ER Document Report ---
ED Medical Screen (RME) - General Chief Complaint: Congestion Stated Complaint: HOARSE VOICE,FATIGUE,STOMACH PAIN,MUSCLE WEAKNESS Time Seen by Provider: 04/08/19 20:39 Notes: Patient is a 23-year-old male with a past medical history of myasthenia gravis and HIV who presents to the emergency department with throat hoarseness. He has had this before. He denies any actual pain. Exam: Erythema noted to oropharynx. I have greeted and performed a rapid initial assessment of this patient. A comprehensive ED assessment and evaluation of the patient, analysis of test results and completion of medical decision making process will be conducted by an additional ED providers. TRAVEL OUTSIDE OF THE [place] IN LAST 30 DAYS: No - Related Data Allergies/Adverse Reactions: No Known Allergies Allergy (Verified 02/05/19 15:34) Home Medications: Omeprazole 40mg. Biktarvy (Prep) Past Medical History - Social History Frequency of alcohol use: None Drug Abuse: None Renal/ Medical History: Denies: Hx Peritoneal Dialysis Psychiatric Medical History: Denies: Hx Depression Past Surgical History: Reports: Hx Inguinal Hernia, Hx Umbilical Hernia, Other - Thymus gland removed Umbilical hernia repair as 10 months age - Immunizations Immunizations up to date: Yes Hx Diphtheria, Pertussis, Tetanus Vaccination: Yes Physical Exam - Vital signs Vitals: Temp Pulse Resp BP Pulse Ox 98.8 F 104 H 17 169/101 H 100 04/08/19 19:58 04/08/19 19:58 04/08/19 19:58 04/08/19 19:58 04/08/19 19:58 Course - Vital Signs Vital signs: Temp Pulse Resp BP Pulse Ox 98.8 F 104 H 17 169/101 H 100 04/08/19 19:58 04/08/19 19:58 04/08/19 19:58 04/08/19 19:58 04/08/19 19:58
[2019-04-08 21:19] LABS: ABSOLUTE EOSINOPHILS # (AUTO) 0.1 10^3/uL (0.0-0.6); ABSOLUTE LYMPHOCYTES (AUTO) 2.3 10^3/uL (0.5-4.7); ABSOLUTE NEUT (AUTO) 7.2 10^3/uL (1.7-8.2); BASOPHILS % (AUTO) 0.5 % (0-2); EOSINOPHILS % (AUTO) 0.7 % (0-6); HEMATOCRIT 46.9 % (37.9-51.0); HEMOGLOBIN 16.1 g/dL (13.5-17.0); LYMPHOCYTES % (AUTO) 21.3 % (13-45); MEAN CORPUSCULAR HEMOGLOBIN 30.8 pg (27.0-33.4); MEAN CORPUSCULAR HGB CONC 34.5 g/dL (32.0-36.0); MEAN CORPUSCULAR VOLUME 89 fl (80-97); MONOCYTES % (AUTO) 9.8 % (3-13); PLATELET COUNT 209 10^3/uL (150-450); RED BLOOD COUNT 5.24 10^6/uL (4.35-5.55); RED CELL DISTRIBUTION WIDTH 14.5 % (11.5-14.0); SEGMENTED NEUTROPHILS % (AUTO) 67.7 % (42-78); TOTAL CELLS COUNTED % (AUTO) 100 %; WHITE BLOOD COUNT 10.6 10^3/uL (4.0-10.5)
[2019-04-08 21:31] LABS: ALBUMIN 4.6 g/dL (3.5-5.0); ALKALINE PHOSPHATASE 57 U/L (38-126); ANION GAP 8 (5-19); ASPARTATE AMINO TRANSFERASE 23 U/L (17-59); BILIRUBIN,DIRECT 0.1 mg/dL (0.0-0.4); BILIRUBIN,TOTAL 1.2 mg/dL (0.2-1.3); BLOOD UREA NITROGEN 13 mg/dL (7-20); CALCIUM 9.9 mg/dL (8.4-10.2); CARBON DIOXIDE 34 mmol/L (22-30); CHLORIDE 100 mmol/L (98-107); GLUCOSE 93 mg/dL (75-110); POTASSIUM 4.1 mmol/L (3.6-5.0); TOTAL PROTEIN 8.1 g/dL (6.3-8.2)
[2019-04-08] MEDS ORDERED: FLUTICASONE NASAL SPRAY 50 MCG/SPRY 120 SPRAY/16 GM NASL ONE (22:49)
--- NOTE | 2019-04-08 23:19 | ER Document Report ---
ED General - General Chief Complaint: Congestion Stated Complaint: HOARSE VOICE,FATIGUE,STOMACH PAIN,MUSCLE WEAKNESS Time Seen by Provider: 04/08/19 20:39 Mode of Arrival: Ambulatory Information source: Patient TRAVEL OUTSIDE OF THE [place] IN LAST 30 DAYS: No - HPI Onset: Other - over the last 2 months Onset/Duration: Gradual Quality of pain: Achy, Pressure Severity: Mild Pain Level: 1 Associated symptoms: Other - nasal congestion, sinus congestion, pain in throat Exacerbated by: Other - swallowing Similar symptoms previously: No Recently seen / treated by doctor: No Notes: 23 year old male with with a history of Myasthenia Gravis (he is no longer on medications but he used to be on prednisone and celcept) here for 2 months of nasal and sinus congestion, sore throat, a sensation there is a knot in his throat, mild stomach pains, and and some diarrhea. The patient has seen his PCP and he was told he could have allergies or GERD. He has tried treatment for both without much improvement. The patient denies fevers, chills, sweats, nausea, vomiting. - Related Data Allergies/Adverse Reactions: No Known Allergies Allergy (Verified 02/05/19 15:34) Home Medications: Omeprazole 40mg. Biktarvy (Prep) Past Medical History - General Information source: Patient - Social History Smoking Status: Never Smoker Frequency of alcohol use: None Drug Abuse: None Family History: Arthritis, Hypertension Patient has suicidal ideation: No Patient has homicidal ideation: No Neurological Medical History: Reports: Other - Myasthenia Gravis (in remission) Renal/ Medical History: Denies: Hx Peritoneal Dialysis Psychiatric Medical History: Denies: Hx Depression Past Surgical History: Reports: Hx Inguinal Hernia, Hx Umbilical Hernia, Other - Thymus gland removed Umbilical hernia repair as 10 months age - Immunizations Immunizations up to date: Yes Hx Diphtheria, Pertussis, Tetanus Vaccination: Yes Review of Systems - Review of Systems Constitutional: Chills EENT: Nose congestion, Throat pain, Other - sinus congestion Gastrointestinal: Diarrhea -: Yes All other systems reviewed and negative Physical Exam - Vital signs Vitals: Temp Pulse Resp BP Pulse Ox 98.8 F 104 H 17 169/101 H 100 04/08/19 19:58 04/08/19 19:58 04/08/19 19:58 04/08/19 19:58 04/08/19 19:58 - Notes Notes: GENERAL: Well-appearing, well-nourished and in no acute distress. HEAD: Atraumatic, normocephalic. EYES: Pupils equal round and reactive to light, extraocular movements intact, sclera anicteric, conjunctiva are normal. ENT: TMs normal, nares patent but nasal turbinates are very swollen bilaterally and erythematous. Oropharynx clear without exudates. Tonsils normal size. Uvula midline and not swollen. Moist mucous membranes. NECK: Normal range of motion, supple without lymphadenopathy or JVD. LUNGS: Breath sounds clear to auscultation bilaterally and equal. No wheezes rales or rhonchi. HEART: Regular rate and rhythm without murmurs, rubs or gallops. ABDOMEN: Soft, nontender, normoactive bowel sounds. No guarding, no rebound. No masses appreciated. EXTREMITIES: Normal range of motion, no pitting or edema. No clubbing or cyanosis. NEUROLOGICAL: Cranial nerves II through XII grossly intact. Normal speech, normal gait. PSYCH: Normal mood, normal affect. SKIN: Warm, Dry, normal turgor, no rashes or lesions noted. Course - Re-evaluation Re-evalutation: 04/08/19 23:24 The patient has very swollen nasal turbinates bilaterally. He likely has a chronic allergy or sinus issue going on. Patient has had 2 months of symptoms making an infectious process seem unlikely. Patient tested negative for strep today and he says he tested negative for mono in the recent past. Will treat patient with Flonase and refer to ENT. Patient has an outpatient appointment with [facility] within a month for his Myasthenia Gravis which he says is in remission. Patient is not having any signs or symptoms of a Myasthenia Crisis today. 04/08/19 23:26 - Vital Signs Vital signs: Temp Pulse Resp BP Pulse Ox 98.8 F 104 H 17 169/101 H 100 04/08/19 19:58 04/08/19 19:58 04/08/19 19:58 04/08/19 19:58 04/08/19 19:58 - Laboratory Result Diagrams: 04/08/19 20:20 04/08/19 20:20 Laboratory results interpreted by me: 04/08/19 04/08/19 20:20 20:20 WBC 10.6 H RDW 14.5 H Carbon Dioxide 34 H Discharge - Discharge Clinical Impression: Nasal turbinate hypertrophy Allergy Qualifiers: Encounter type: initial encounter Qualified Code(s): T78.40XA - Allergy, unspecified, initial encounter Condition: Stable Disposition: HOME, SELF-CARE Instructions: Nasal Sprays and Drops ([facility]) Additional Instructions: Use the prescribed Flonase. Follow up with an ENT Surgeon such as Dr. Naik if your nose/sinus/throat issues persist. Follow up with your Neurologist at [facility] and tell him/her about your ER visit today. Seek medical attention for trouble breathing or if worse. Prescriptions: Fluticasone Propionate [Flonase Nasal Troup 50 Mcg/Troup 16 gm] 1 spray NASL Q12 #1 inhaler Referrals: JAKE NAIK DO [ASSOCIATE] - Follow up as needed
[2019-04-08 23:47] VITALS: BP 151/94
== END 2019-04-08 23:45 | disposition home or self-care (01) ==
LOC: ER 19:51
DX: J34.3 Hypertrophy of nasal turbinates (principal); T78.40XA Allergy, unspecified, initial encounter; R09.81 Nasal congestion; M79.10 Myalgia, unspecified site; J02.9 Acute pharyngitis, unspecified; X58.XXXA Exposure to other specified factors, initial encounter
CPT/HCPCS: 99283; 36415; 87070; 87880; 85025; 87077; 80053; J3490

== ENCOUNTER → 2019-09-19 | Outpatient (CLI) | payer OTHER | LOC: OD 14:42 | PROVIDERS: ATTEND Otolaryngology | DX: J30.9 Allergic rhinitis, unspecified (principal) | CPT/HCPCS: 36415; 82785; 86003 ==